=== PATIENT | male | born 1940 | race Caucasian/White ===

== ENCOUNTER → 2019-07-22 12:34 | Outpatient (CLI) | payer MEDICARE, SELFPAY ==
--- NOTE | 2019-07-22 12:35 | CA_ITS ---
APPROVED REPORT EXAM: Comprehensive 2D, Doppler, and color-flow Echocardiogram Obstetrics Specialist: Elvia Dent CRT Ht: 5 ft 10 in Wt: 172lbs BSA: 1.96 BP: 142/82 mmHg Indications: COPD, Hyperlipidemia, Hypertension/HDD, smoker, cad, RBBB, old mi 1992, CP 2D Dimensions LVOT 1.82 cm (M/F) 1.5-2.5 M-Mode Dimensions RVDd 1.60 cm (0.9-2.6) LVDd 4.08 cm (3.5-5.7) LVDs 2.63 cm (3.5-5.7) IVSd 1.35 cm (0.6-1.1) PWd 1.26 cm (0.6-1.1) EF (Teich) 65.50% FS 35.50% EDV (Teich) 73.40 mL ESV (Teich) 25.30 mL LV Diastology E/A Ratio 0.59 Aortic Valve LVOT Max 116.00 (70-110 cm/s) LVOT VTI 20.64 cm Mitral Valve MV A Velocity 87.00 (40-130 cm/s) Left Ventricle Left atrium is mildly enlarged, left ventricle is normal size, mild concentric left ventricular hypertrophy, visually estimated ejection fraction 50%, there is abnormal septal motion, there is no regional wall motion abnormality, grade 1 diastolic dysfunction seen without tissue Doppler evidence of raise left atrial pressure. Right Ventricle Right atrium and right ventricular qualitatively mildly enlarged with normal contractility. Aortic Valve Aortic valve leaflets are not well visualized, the Doppler is not suggestive of aortic stenosis or significant aortic insufficiency. Mitral Valve Mitral valve is grossly normal, there is mild mitral regurgitation. Tricuspid Valve Tricuspid valve grossly normal, there is mild tricuspid regurgitation, tricuspid regurgitation jet velocity is inadequate for calculation of the right ventricular systolic pressure. Pulmonic Valve Pulmonic valve is poorly visualized. Great Vessels Aortic root is normal size. Pericardium No significant pericardial effusion noted. Conclusion 1. Mild mitral alignment, normal left ventricular size, mild concentric left ventricular hypertrophy, visually estimated ejection fraction 50% with no regional wall motion abnormality, grade 1 diastolic dysfunction seen without tissue Doppler evidence of raise left atrial pressure. 2. Mildly enlarged right ventricle with normal contractility. 3. The aortic valve is not well visualized, however Doppler is not suggestive of aortic stenosis or aortic insufficiency. 4. Mild mitral and tricuspid regurgitation. 5. No significant pericardial effusion noted. Electronically signed by : Juwan Do, 07/23/2019 11:42:04
--- NOTE | 2019-07-22 12:35 | CA_ITS ---
APPROVED REPORT Systems Engineering Manager: Barby Do RVT Laterality: Bilateral Study Quality: Good Indications: bruit Risk Factors Hypertension: Hyperlipidemia Smoking Doppler Spectral Velocity Analysis ECA (R) 188.90/7.60 cm/s ECA (L) 149.40/7.20 cm/s dICA (R) 73.10/14.10 cm/s dICA (L) 63.60/19.40 cm/s Rodrigo (R) 69.60/20.00 cm/s Rodrigo (L) 74.50/17.00 cm/s pICA (R) 86.10/13.60 cm/s pICA (L) 112.70/22.40 cm/s dCCA (R) 75.00/9.20 cm/s dCCA (L) 56.70/6.20 cm/s pCCA (R) 84.20/13.30 cm/s pCCA (L) 96.60/9.60 cm/s Vert (R) 53.10/14.10 cm/s Vert (L) 36.80/5.60 cm/s ICA/CCA 1.15 ICA/CCA 1.99 Conclusion Study suggests 20-49% stenosis of the right internal cartoid artery. study suggests 20-49% stenosis (upper end of scale) of the left internal cartoid artery. Antegrade flow seen bilateral vertebral arteries. Cystic nodules seen right thyroid lobe. Electronically signed by : Nathan Rodgers MD 07/22/2019 16:36:06
== END ==
PROVIDERS: PCP Emergency Medicine; Visit Provider Emergency Medicine
DX: I10 Essential (primary) hypertension (principal); R07.89 Other chest pain; R09.89 Other specified symptoms and signs involving the circulatory and respiratory systems
CPT/HCPCS: 93306; 93880

== ENCOUNTER → 2019-07-23 11:27 | Outpatient (CLI) | payer MEDICARE, SELFPAY ==
[2019-07-23 13:01] LABS: Prostate Specific Ag Screen 3.9 ng/ml (0.0-4.0)
== END ==
PROVIDERS: Visit Provider Urology
DX: Z12.5 Encounter for screening for malignant neoplasm of prostate (principal)
CPT/HCPCS: 36415; G0103

== ENCOUNTER 2019-10-29 20:35 | Emergency (ER) | payer MEDICARE, SELFPAY ==
[2019-10-29 20:47] VITALS: BP 158/65; PULSE 78; RESP 16; TEMP 36.7; O2SAT 94; BMI 26.2
--- NOTE | 2019-10-29 20:48 | XR_ITS ---
PROCEDURE: XR FOOT LT MIN 3V CLINICAL INDICATION: PAIN Slipped on wet stairs. COMPARISON: No exams were available for comparison FINDINGS: No fracture or dislocation. No lytic or blastic change. There is normal mineralization. The joint spaces are well-preserved. No erosive changes evident. Mild degenerative arthrosis of the midfoot. Other findings:2nd to 5th hammertoes. There is increased web space between the 2nd and 3rd toe. Extensive small vessel atheromatous calcifications possibly sequela of diabetes mellitus. Possible minor soft tissue swelling laterally of the mid/forefoot. IMPRESSION: 1. No demonstrated acute fracture or dislocation. 2. Possible minor soft tissue swelling dorsally/medially of the mid/distal foot. Dictated by: Belgica Fletcher 10/30/2019 09:40 Electronically signed by Belgica Fletcher in [place] 10/30/2019 09:40
--- NOTE | 2019-10-29 20:52 | HMH.EDUTC ---
[facility] [place] Clinical Impression: Foot infection Foot pain Qualifiers: Laterality: left Qualified Code(s): M79.672 - Pain in left foot Disposition: Home, Self-Care Condition on Discharge: Good Instructions: DI for Wound Infection Additional Instructions: Make sure to clean wound area well between 4th and 5th toe *Take antibiotics as prescribed for infection Follow up with Dr Morgan for further evaluation and treatment of infection in foot Follow up with Family Doctor if no improvement or any worsening of symptoms Return if needed Straight to ER if any fever, chills or life threatening symptoms Prescriptions: clindamycin HCL [Clindamycin HCl 300mg Cap] 300 mg PO Q8 #30 cap Transmission Status: Pending to [id number] Referrals: PCP,Mali [Primary Care Provider] - As needed Hillary Morgan DPM [Staff Physician] - As needed Time of Disposition: 21:30 Medical Decision Making - Emeterio Inquiry Pt receiving controlled substance: No Emeterio was queried for this patient: No Vital Signs: 10/29/19 20:47 Temperature 98.0 F Temperature Source Oral Pulse Rate [Right Brachial] 78 Respiratory Rate 16 Blood Pressure [Right Arm] 158/65 H Blood Pressure Mean [Right Arm] 96 Blood Pressure Source [Right Arm] Automatic Cuff Blood Pressure Position [Right Arm] Sitting 02 Sat by Pulse Oximetry 94 L Oxygen Delivery Method Room Air Orders (Tests/Meds): ORDERS Category Date Time Status XR foot LT min 3V Stat Exams 10/29/19 20:48 Ordered - Radiology Data #1 Image(s): Foot/Toes Image Reviewed: Yes I reviewed the patient's radiology image w/the ED provider Preliminary Findings: No Fracture Seen Medical Decision Narrative: ulceration noted between 4th and 5th toe upon examination of foot with mild redness noted. Patient unsure how long it had been there, area cleaned well and bandage placed and patient placed in post op shoe for support and started on Clindamycin for infection and recommended follow up with Dr morgan for further evaluation and treatment [facility] [place] - General Stated complaint: Both feet swollen and pain Time Seen by Provider: 10/29/19 20:52 Mode of Arrival: Ambulatory Source of Information: Patient Limitations: No Limitations Description of Symptoms (Recalled from Triage Doc. by RN): PATIENT C/O LEFT FOOT PAIN AFTER FALLING AND INJURING IT HEENT Symptoms (Recalled from RN notes): No Resp Symptoms (Recalled from RN notes): No Skin Symptoms (Recalled from RN notes): No MS Symptoms (Recalled from RN notes): Yes Functional Status (Recalled from RN notes): WNL - History of Present Illness Provider Complaint: Patient states that he eat some Chicken and was taking it to the trash to throw it away and someone had laid a board down and he accidently kicked it with his left foot and made him trip and the board came up and hit him in the top of his left foot and now he is having pain on the side of his little toe across the top of his foot State that now he is having pain in his left foot - Related Data Home Medications Medication Instructions Recorded Confirmed atorvastatin 40 mg tablet 40 mg PO QHS 07/15/19 07/23/19 Previous Rx's Medication Instructions Recorded Famotidine [Pepcid 20mg Tablet] 20 mg PO BID #60 tab 06/22/19 budesonide-formoterol HFA 80 2 puff INHALATION BID #10.2 g 07/15/19 mcg-4.5 mcg/actuation aerosol inhaler lisinopril 40 mg tablet See Rx Instructions .ROUTE 09/07/19 .COMPLEX #180 tab clindamycin HCL [Clindamycin HCl 300 mg PO Q8 #30 cap 10/29/19 300mg Cap] Allergies Allergy/AdvReac Type Severity Reaction Status Date / Time acetaminophen AdvReac Mild Vomiting Verified 07/23/19 11:08 [From Tylenol-Codeine] codeine AdvReac Mild Vomiting Verified 07/23/19 11:08 [From Tylenol-Codeine] - Worker's Comp Is this a Worker's Comp case?: No H History - Hepatitis A Screen Drug use history?: No High risk sexual behaviors?:
[2019-10-29 21:49] VITALS: BP 158/65; PULSE 78; RESP 16; TEMP 36.7; O2SAT 94
== END 2019-10-29 21:50 | disposition home or self-care (01) ==
PROVIDERS: Emergency Provider Nurse Practitioner
DX: M79.672 Pain in left foot (principal); L08.9 Local infection of the skin and subcutaneous tissue, unspecified; Z88.6 Allergy status to analgesic agent; E78.5 Hyperlipidemia, unspecified; I10 Essential (primary) hypertension; J44.9 Chronic obstructive pulmonary disease, unspecified; Z79.899 Other long term (current) drug therapy
CPT/HCPCS: 73630; 99201

== ENCOUNTER → 2019-11-02 17:59 | Outpatient (CLI) | payer MEDICARE, SELFPAY | PROVIDERS: Visit Provider Podiatrist | DX: S91.105A Unspecified open wound of left lesser toe(s) without damage to nail, initial encounter | CPT/HCPCS: 87070; 87077; 87186; 87205 ==

== ENCOUNTER → 2019-11-03 13:32 | Outpatient (CLI) | payer MEDICARE, SELFPAY ==
--- NOTE | 2019-11-03 13:49 | XR_ITS ---
PROCEDURE: XR CHEST AP CLINICAL HISTORY: surgery clearance Smoker, heart disease COMPARISON: CT CT ANGIO CHEST from 06/22/2019 CR XR CHEST 2V from 06/22/2019 FINDINGS: The cardiomediastinal silhouette and pulmonary vascularity are within normal limits. Changes of COPD No acute bony abnormalities. IMPRESSION: COPD otherwise negative Dictated b Nathan Rodgers MD 11/03/2019 14:11 Nathan Rodgers MD in [place] 11/03/2019 14:11
[2019-11-03 14:10] LABS: Hemoglobin A1C 6.3 % (4.0-6.0)
--- NOTE | 2019-11-03 14:14 | ECG_ITS ---
APPROVED REPORT Exam: Resting ECG HR:69 bpm ECG Measurements Heart Rate 69 AXES FL 168 P 81 QRSd 112 QRS 92 QT 398 T 30 QTc 426 <Conclusion> Normal sinus rhythm Rightward axis Incomplete right bundle branch block Borderline ECG Electronically signed by : Zack Nelson, 11/04/2019 07:20:05
[2019-11-03 14:22] LABS: Basophils % 0.5 % (0.1-2.0); Eosinophils # 0.2 K/mm3 (0.0-0.4); Eosinophils % 4.1 % (0.1-12.0); Hematocrit 38.1 % (42.0-52.0); Hemoglobin 13.1 g/dL (14.1-18.0); Lymphocytes # 1.4 K/mm3 (0.7-4.5); Lymphocytes % 23.8 % (10-50); Mean Corpuscular HGB Conc 34.3 g/dL (31.8-35.4); Mean Corpuscular Volume 96.2 fl (80-94); Mean Platelet Volume 7.5 fl (7.4-10.4); Monocytes # 0.3 K/mm3 (0.1-1.0); Monocytes % 5.3 % (1.7-9.3); Neutrophils # 3.8 K/mm3 (1.8-7.8); Neutrophils % 66.3 % (37.0-80.0); Platelet Count 237 K/mm3 (142-424); Red Blood Count 3.96 M/mm3 (4.60-6.20); Red Cell Distribution Width 13.7 % (11.5-17.5); White Blood Count 5.7 K/mm3 (4.8-10.8)
[2019-11-03 14:30] LABS: Chloride 101 mmol/L (98-107); Sodium 137 mmol/L (136-145)
[2019-11-03 14:31] LABS: Potassium 4.7 mmoL/L (3.5-5.1)
[2019-11-03 14:33] LABS: Alanine Aminotransferase 12 U/L (12-78); Alkaline Phosphatase 67 U/L (38-126); Anion Gap 14.7 mEq/L (5-15); Aspartate Amino Transferase 25 U/L (17-59); Bilirubin,Total 0.5 mg/dl (0.2-1.3); Blood Urea Nitrogen 14 mg/dl (9-20); Carbon Dioxide 26 mmol/L (22.0-30.0); Estimated Glomerular Filt Rate 49 ml/min (>60); GFR (African American) 59 ML/MIN (>60)
[2019-11-03 14:34] LABS: Albumin Level 3.8 g/dl (3.5-5.0); Albumin/Globulin Ratio 1.3 (1.1-1.8); Calcium 9.3 mg/dl (8.4-10.2); Globulin 2.9 g/dL (1.3-3.2); Glucose 141 mg/dl (74-100); Total Protein,Serum 6.7 g/dl (6.3-8.2)
[2019-11-03 14:39] LABS: C-Reactive Protein 8.7 mg/L (0-4)
[2019-11-03 16:47] LABS: Erythrocyte Sedimentation Rate 75 mm/hr (0-20)
== END ==
PROVIDERS: PCP Emergency Medicine; Visit Provider Podiatrist
DX: L08.9 Local infection of the skin and subcutaneous tissue, unspecified (principal); S90.415A Abrasion, left lesser toe(s), initial encounter; E11.9 Type 2 diabetes mellitus without complications; M79.672 Pain in left foot; M86.172 Other acute osteomyelitis, left ankle and foot; S99.922A Unspecified injury of left foot, initial encounter; Z79.84 Long term (current) use of oral hypoglycemic drugs
CPT/HCPCS: 36415; 71045; 80053; 83036; 85025; 85651; 86140; 93005

== ENCOUNTER 2019-11-04 07:51 | Day surgery (SDC) | payer MEDICARE, SELFPAY ==
[2019-11-04] VITALS (13 sets, daily range): BP systolic 102–141; BP diastolic 51–83; PULSE 59–87; RESP 16–18; TEMP 36.1–43; O2SAT 96–99; BMI 25.5
--- NOTE | 2019-11-04 07:20 | US_ITS ---
APPROVED REPORT Exam Type: Lower Extremity Segmental Pressures Bulk Sugar Handler: Chaya Ramachandran RDCS Indications Non-healing Ulcer: Rest Pain: Current Smoker History of Smoking Risk Factors Hypertension Diabetes Pressures/Indices Right Indices Left Indices Brachial 98.00 mmHg Brachial 106.00 mmHg Low Thigh 62.00 mmHg 0.58 Low Thigh 48.00 mmHg 0.45 Calf 91.00 mmHg 0.86 Calf 42.00 mmHg 0.40 Ankle(PT) 52.00 mmHg 0.49 Ankle(PT) 41.00 mmHg 0.39 Ankle(DP) 112.00 mmHg 1.06 Ankle(DP) 91.00 mmHg 0.86 Digit 31.00 mmHg 0.29 Digit 21.00 mmHg 0.20 Findings R HERBERTH 1.06 L HERBERTH 0.86 R TBI .3 L TBI .2 DIMINISHED WAVEFORM AND DIMINISHED PULSES ESPECIALLY ON LEFT LEG MILD LEFT ARTERIAL DISEASE SMALL VESSEL DISEASE REPORTED TO DR. NINO Conclusion R HERBERTH 1.06 L HERBERTH 0.86 R TBI .3 L TBI .2 DIMINISHED WAVEFORM AND DIMINISHED PULSES ESPECIALLY ON LEFT LEG MILD LEFT ARTERIAL DISEASE SMALL VESSEL DISEASE REPORTED TO DR. NINO Electronically signed by : Nathan Rodgers MD 11/04/2019 16:19:41
[2019-11-04 07:50] LABS: Coronavirus 19 IgG Antibody Negative (Negative); Coronavirus 19 IgM Antibody Negative (Negative)
[2019-11-04 09:14] LABS: POC Glucose,Bedside 108 (70-110)
--- NOTE | 2019-11-04 10:00 | P.PN_ITS ---
[facility] Anesthesia Checklist - Patient Identification Patient Identification: Arm Band - Structural Data Admitted From: Home Planned Operative Procedure/s: Left 5th Toe Amputation, I&D Consent for Planned Operative Procedure(s) Verified: Yes Verified Documents: Surgical Consent, History and Physical - NPO Status Verified Time NPO: 00:00 - Additional verifications Anesthesia Reactions: No Hx Blood Transfusions: No Blood Transfusion Reaction: No - Airway Assessment C-Spine Mobility Assessed: Yes (mp2) TMJ Mobility Assessed: Yes Dentition: Good Dentition - Neurological Assessment Level of Consciousness: Awake, Alert - Anesthesia Plan Anesthesia Risk discussed: Yes Anesthesia Plan: Verified ASA Class: III Anesthesia Type: General [facility] History I have reviewed the patient's past medical history: Yes Medical History: Reports:: Chronic Obstructive Pulmonary Disease (COPD), Hyperlipidemia, Hypertension Denies:: Cancer, Diabetes Mellitus Type 1, Diabetes Mellitus Type 2, Internal Pacemaker, MRSA, Seizures *Have you ever received a pneumonia vaccine?: Yes *Have you received a flu vaccine this season?: Yes Other Medical History: Denies: Blood Transfusion Reaction Anesthesia experience/problems:: nac Other Surgeries: Yes: Cardiac Catheterization, Cardiac Surgery, Colonoscopy, Other. No: Pacemaker Amputation: Yes Fractures: No - *Social History Last grade of school completed: 9th or 10th Smoking Status: Current every day smoker Tobacco Type: cigarettes # Packs/Day (cigarettes): 2 Alcohol Intake: never Substance Use Type: denies use *Occupational Status:: retired Housing: house Household Members: family *Travel in the last 8 weeks: None Family Hx:: Coronary Artery Disease, Heart Attack, Stroke, Hyperlipidemia, Alcoholism
--- NOTE | 2019-11-04 10:15 | XR_ITS ---
PROCEDURE: XR FOOT LT MIN 3V CLINICAL INDICATION: Post op amp Follow-up amputation COMPARISON: CR XR FOOT LT MIN 3V from 10/29/2019 FINDINGS: There has been amputation at the 5th metatarsophalangeal joint. Bandage artifact is present. This does somewhat obscure overlying bony detail. There is good alignment of the remaining bony structures. There is an old fracture of the 5th metatarsal IMPRESSION: Good alignment status post amputation 5th metatarsophalangeal joint. Dictated b Nathan Rodgers MD 11/04/2019 13:57 Nathan Rodgers MD in [place] 11/04/2019 13:57
--- NOTE | 2019-11-04 10:15 | P.PN_ITS ---
[facility] Anesthesia Record Part I Intake, IV Amount: 700 Estimated blood loss (mL): 5 Urine output (mL): 0 Blood Pressure: 102/55 SaO2: 99 Pulse Rate: 78 Respiratory Rate: 16 Temperature: 97.5 F Patient is:: Drowsy, Stable Stable to PACU at:: 10:10
--- NOTE | 2019-11-04 10:22 | HMH.OPNOTE ---
Date of procedure: 11/04/19 Pre-op Diagnosis:: 1. Left 5th toe ulcer 2. 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 Left proximal phalanx dislocation 4. Left foot cellulitis 5. Newly diagnosed DM 6. Newly diagnosed PAD Post-op Diagnosis:: Same Procedure performed:: 1. Left 5th toe amputation 2. Left foot irrigation and debridement 3. Left bone biospy Surgeon:: Hillary Morgan DPM FREIGHT ROUTER:: Varun Walker Anesthesia: GETA, local (30cc 0.5% marcaine plain) Estimated blood loss (mL): 5 Clinical Note:: Mr. Bliss is an 79-year-old male who is a new patient to me this week. He reports sore to the left toe. His niece Chaya is his caregiver and he lives with her. She states that the sore has been there for several weeks. Patient last week tripped and hit a board and the wound progressively got worse and infected since then. Radiographs of the left foot taken 10/29/19. Report noted. IMPRESSION: 1. No demonstrated acute fracture or dislocation. 2. Possible minor soft tissue swelling dorsally/medially of the mid/distal foot. Images were reviewed and discussed with the patient. Likely underlying cellulitis and infection made worse secondary to the trauma. Patient is new patient on 11/02/19, In office cultures of left 5th toe: wound culture GNR, bone culture, both pathology pending. We discussed conservative versus surgical treatment options. Conservative treatment options include local wound care, oral and IV antibiotics, change in shoe wear, taping/padding, and off-loading. We discussed surgical intervention for amputation of the left 5th toe. He was given Clinda, but someone took the prescriptions . He has not seen PCP, Dr. Rodas in almost 6 months and denies seeing cardiology. He was supposed to move back to [place] but did not. Discussed cellulitis vs osteomyelitis. He has exposed bone with drainage, assumed bone infection. He understands treatment is debridement of infected tissue and bone. Patient understands that there is a chance that the toes can migrate to fill the gap or the foot may change shape after surgery. Patient also understands that they could have wound healing complications including delayed healing and infection. We discussed that if the wound does not heal, it is possible that they may need a more proximal amputation and could result in further loss of digits, loss of partial foot or loss of leg. We discussed the risks and benefits in great detail. Other surgical risks include: prolonged pain and swelling, further infection requiring oral or IV antibiotics, delay in healing of soft tissue or bone, nerve or blood vessel damage, CRPS/RSD, DVT, anesthesia complications, and even . All questions answered. Patient verbalized understanding. Consent obtained. e-Rx Clinda 300mg TID, Zofran 4mg, and Sanborn 7.5/325. Medical clearance per Dr. Rodas/Nancy Espinoza and cardiology. Pre-op labs, 11/03/19: ESR 75, CRP 8.7, Ha1c 6.3%, WBC 5.7, creatinine 1.4, gfr 49, glcuose 141, EKG, CXR. DOS: ABIs, COVID negative. Bilateral arterial ultrasound: HERBERTH 1.06 (PT 0.49, DP 1.06), L 0.86 (PT 0.39, DP 0.86). TBI R 0.29, L 0.20 *DOS: Left message for Nancy Espinoza/PCP regarding the elevated glucose levels of 141 and the hemoglobin A1c of 6.3. I explained to the patient he is newly diagnosed diabetic. I did call and speak with [facility] cardiology regarding the ABIs that were taken today. I explained his exposed bone cellulitis and infection to the toe. We will proceed with amputation surgery. She will review the chart and ultrasound results. The patient is scheduled for follow-up with cardiology in the next few weeks. If he needs a runoff and needs to come in sooner cardiology office will contact him. I also discussed the vascular studies with the patient and his niece preoperatively. I explained the increased risk of gangrene, delay in healing of the soft tissue, increased risk of prolonged infection. They verbalized understanding and agreed to proceed. Operative findings:: Left fifth
[2019-11-04 10:36] LABS: POC Glucose,Bedside 113 (70-110)
--- NOTE | 2019-11-04 14:29 | P.PN_ITS ---
[facility] Anesthesia Record Part II Discharge Time: 10:40 Destination: Surgical Day Care (OP Surgery) PACU nurse assessment reviewed?: Yes Patient Condition:: Good Anesthesia Complications:: None Swallowing reflex intact?: Yes Cyanosis?: No Blood Pressure: 107/55 Pulse Rate: 70 Temperature: 97 F Mental Status: Alert & Oriented Pain level:: 0 Nausea and/or vomitting:: None Intake, IV Amount: 0
== END 2019-11-04 12:11 | disposition home or self-care (01) ==
LOC: OR 07:54
PROVIDERS: PCP Emergency Medicine; Visit Provider Podiatrist
DX: M86.172 Other acute osteomyelitis, left ankle and foot (principal); L97.524 Non-pressure chronic ulcer of other part of left foot with necrosis of bone; I25.10 Atherosclerotic heart disease of native coronary artery without angina pectoris; Z72.0 Tobacco use; J44.9 Chronic obstructive pulmonary disease, unspecified; E11.9 Type 2 diabetes mellitus without complications; I10 Essential (primary) hypertension; I99.8 Other disorder of circulatory system
CPT/HCPCS: 28160; 73630; 82962; 86328; 87070; 87075; 87077; 87186; 87205; 88305; 88311; 93923; 96374; J2405; J3370

== ENCOUNTER → 2019-11-09 16:53 | Outpatient (CLI) | payer MEDICARE, SELFPAY | PROVIDERS: Visit Provider Podiatrist | DX: Z98.890 Other specified postprocedural states (principal); M86.172 Other acute osteomyelitis, left ankle and foot | CPT/HCPCS: 87070; 87077; 87186; 87205 ==

== ENCOUNTER → 2019-11-16 09:01 | Outpatient (CLI) | payer MEDICARE, SELFPAY ==
--- NOTE | 2019-11-16 09:06 | XR_ITS ---
PROCEDURE: XR FOOT WT BEARING LT 3V CLINICAL INDICATION: foot pain COMPARISON: CR XR FOOT LT MIN 3V from 10/29/2019 CR XR FOOT LT MIN 3V from 11/04/2019 FINDINGS: Status post amputation at the 5th metatarsophalangeal junction. There is an old 5th metatarsal fracture. No acute bony erosive process evident. Hammertoe deformity involves the 3rd and 4th toes. There is vascular calcification noted. Other findings:None. IMPRESSION: No change status post amputation at the 5th metatarsophalangeal junction Dictated by: Nathan Rodgers MD 11/16/2019 10:29 Nathan Rodgers MD in [place] 11/16/2019 10:29
== END ==
PROVIDERS: Visit Provider Podiatrist
DX: L08.9 Local infection of the skin and subcutaneous tissue, unspecified (principal); M86.172 Other acute osteomyelitis, left ankle and foot
CPT/HCPCS: 73630

== ENCOUNTER → 2019-11-17 06:45 | Outpatient (CLI) | payer MEDICARE, SELFPAY ==
--- NOTE | 2019-11-17 06:50 | NM_ITS ---
APPROVED REPORT Exam: Nuclear Stress Test Indication: SOB, HTN, CAD, DM, High cholesterol, Tobacco use, Family history Patient Location: Outpatient Stress Tech: Megan Bey [place] Tech:Geni Beckman, ARRT, RT (R)(N) Ht: 5 ft 9 in Wt: 178 lbs HR: 79 bpm BP: 99/46 mmHg BSA: 1.97 m2 BMI: 26.2 History: SOB, HTN, CAD, DM, High cholesterol, Tobacco use, Family history Procedure: Patient received a 0.4 mg of intravenous Lexiscan, resting heart rate 79 bpm, resting blood pressure 99/46 mmHg, with Lexiscan maximum heart rate achived was 96 bpm which is Less than 85 % of the maximum predicted heart rate and blood pressure was 99/48 mmHg. With Lexiscan, patient denied any complaint of chest pain. Electrocardiogram Resting electrocardiogram shows sinus rhythm right ventricular conduction delay, with Lexiscan there is less than 1.[address] segment depression noted from the baseline EKG. The EKG portion of the Lexiscan Myoview is nondiagnostic. Cardiac Stress and Resting SPECT Images: Cardiac Stress and Resting SPECT images were obtained using technetium 99m Myoview 30.4 mCi stress and 10.37 mCi at rest. Gated SPECT for analysis of segmental wall motion and calculation of the ejection fraction also done. Cardiac stress and resting SPECT images show uniform myocardial activity without segmental perfusion abnormality, computer derived ejection fraction is 63% with no regional wall motion abnormality, right ventricle is normal size and contractility. Conclusion: 1. The EKG portion of the Lexiscan Myoview is nondiagnostic. 2. No scintigraphic evidence of reversible ischemia seen, computer derived ejection fraction is 63% with no regional wall motion abnormality, right ventricle is normal size and contractility. 3. Normal Lexiscan Myoview study. Electronically signed by : Juwan Do, 11/17/2019 21:40:30
--- NOTE | 2019-11-17 06:50 | CA_ITS ---
APPROVED REPORT Exam: Pharmacologic Technologist: Megan Bey Ht: 5 ft 9 in Wt: 178 lbs BSA: 1.97 m2 HR: 79 bpm BP: 99/46 mmHg Indications: CAD Medical History Medications: Lisinopril,,,,, Metformin,,,,, SyMBICORT,,,,, Levofloxacin,,,,, DOxycycline,,,,, ClINDAMYCIN,,,,, Hydrocodone-Acetaminophen,,,,, Stress Test Details Test: LEXISCAN HR Resting HR: 83 bpm Max Heart Rate (APMHR): 140 bpm Max HR Achieved: 104 bpm Target HR (85% APMHR): 119 bpm % of APMHR: 74 Recovery HR: 93 bpm BP Resting BP: 99.0/46.0 mmHg Max BP: 129.0/48.0 mmHg Recovery BP: 114.0/47.0 mmHg ECG Clinical Exercise duration: 00:25 min Highest Stage Achieved: Exercise capacity: 1.0 METs Stress ECG Conclusion Resting EKG: Normal sinus rhythm, Right bundle branch block, PAC Symptoms: Mild malaise. No chest pain. Arrhythmias/Ectopy: Occasional PVC ST-T Changes: No significant changes. Conclusion: Unremarkable Lexiscan stress. Myoview images reported separately. Test Summary REST . . . . . . . Resting REST 04:30 . . 83 . 99/ 46 . . Stage 1 00:25 . . 80 . . . Stop exercise at 00:25 RECOVERY 01:00 . . 97 . . . . RECOVERY 02:00 . . 93 . 99/ 48 . . RECOVERY 03:00 . . 95 . 99/ 51 . . RECOVERY 04:00 . . 93 . 115/ 47 . . RECOVERY 05:00 . . 94 . 129/ 48 . . RECOVERY 06:00 . . 92 . 129/ 48 . . RECOVERY 06:47 . . 94 . 114/ 47 . . Electronically signed by : Juwan Do, 11/17/2019 21:38:27
--- NOTE | 2019-11-17 09:01 | HMH.ITSHM ---
Current Home Medications as stated by this patient Sebas Cortés or sales representative girls' apparel. []METFORMIN LISINOPRIL LEVOFLOXACIN HYDROCODONE DOXYCYCLINE CLINDAMYCIN BUDESONIDE
== END ==
PROVIDERS: PCP Emergency Medicine; Visit Provider Physician Assistant
DX: E78.2 Mixed hyperlipidemia (principal); I10 Essential (primary) hypertension; I25.10 Atherosclerotic heart disease of native coronary artery without angina pectoris; I25.2 Old myocardial infarction; I73.9 Peripheral vascular disease, unspecified; J44.9 Chronic obstructive pulmonary disease, unspecified; Z72.0 Tobacco use; Z95.5 Presence of coronary angioplasty implant and graft
CPT/HCPCS: 78452; 93017; A9502; J2785

== ENCOUNTER 2019-11-18 12:59 | Observation (INO) | payer MEDICARE, SELFPAY ==
[2019-11-18] VITALS (57 sets, daily range): BP systolic 62–182; BP diastolic 31–86; PULSE 54–97; RESP 16–20; TEMP 36.5–36.9; O2SAT 93–100; BMI 25.4; BMI 24.0
--- NOTE | 2019-11-18 | CT_ITS ---
PROCEDURE: CT ABDOMEN PELVIS WO CON CLINICAL INDICATION: POSS SUDO POST CATH Hypotension status post renal artery stent and bilateral iliac artery stent. COMPARISON: CT CT ABDOMEN PELVIS W CON from 06/22/2019 XA CL BOLUS ZAHIDA AORTAGRAM BI from 11/18/2019 TECHNIQUE: Axial images obtained with sagittal and coronal reformats. All CT scans at the facility use one or more dose reduction, viz: automated exposure control, ma/kV adjustment per patient size (including targeted exams where dose is matched to indication, i.e. head), or iterative reconstruction technique. FINDINGS: LOWER THORAX: Coronary artery calcifications are present. ABDOMEN & PELVIS: Study was performed without contrast however the patient is status post recent right renal artery and bilateral iliac artery stenting with contrast given on those procedures. The kidneys are therefore excreting contrast. There are multiple benign-appearing bilateral renal cyst. There is a pelvic kidney on the left. There is no evidence of retroperitoneal hemorrhage. No intestinal obstruction or free air is evident. There is a small umbilical hernia which contains fat. No evidence of diverticulitis or appendicitis. No intestinal obstruction or free air. Lobular soft tissue density noted in the left groin at 2.8 cm transverse and 0.8 cm thick which may be due to small lymph nodes or small hematoma.. Minimal infiltration of the fat in the right groin noted consistent with small amount of blood. No large hematomas are evident. There is some minimal infiltration of the fat in the left groin as well. The prostate is enlarged at 5 cm. There is a right renal artery stent and bilateral iliac artery stents. No acute bony findings. IMPRESSION: 1. No evidence of acute retroperitoneal hemorrhage. 2. Bilateral renal cysts with the left pelvic kidney. 3. Right renal artery and bilateral iliac artery stents are present 4. Enlarged prostate. 5. There is some infiltration of the the inguinal fat on both sides suggesting small amount of blood with possible small hematoma in the left groin at 2.8 x 0.8 cm Dictated by: Nathan Rodgers MD 11/18/2019 14:38 Nathan Rodgers MD in [place] 11/18/2019 14:38
[2019-11-18 09:24] LABS: Chloride 100 mmol/L (98-107); Potassium 4.7 mmoL/L (3.5-5.1); Sodium 136 mmol/L (136-145)
[2019-11-18 09:27] LABS: Anion Gap 13.7 mEq/L (5-15); Blood Urea Nitrogen 18 mg/dl (9-20); Calcium 9.7 mg/dl (8.4-10.2); Carbon Dioxide 27 mmol/L (22.0-30.0); Creatinine Clearance Estimated 42 mL/min (50-200); Estimated Glomerular Filt Rate 42 ml/min (>60); GFR (African American) 51 ML/MIN (>60); Glucose 93 mg/dl (74-100)
[2019-11-18 09:28] LABS: Basophils % 0.4 % (0.1-2.0); Eosinophils # 0.3 K/mm3 (0.0-0.4); Eosinophils % 3.9 % (0.1-12.0); Hematocrit 37.5 % (42.0-52.0); Hemoglobin 12.7 g/dL (14.1-18.0); Lymphocytes # 1.7 K/mm3 (0.7-4.5); Mean Corpuscular HGB Conc 33.9 g/dL (31.8-35.4); Mean Corpuscular Hemoglobin 32.5 pg (27.0-31.2); Mean Corpuscular Volume 95.8 fl (80-94); Mean Platelet Volume 7.1 fl (7.4-10.4); Monocytes # 0.4 K/mm3 (0.1-1.0); Monocytes % 4.5 % (1.7-9.3); Neutrophils # 5.4 K/mm3 (1.8-7.8); Neutrophils % 69.2 % (37.0-80.0); Platelet Count 322 K/mm3 (142-424); Red Blood Count 3.91 M/mm3 (4.60-6.20); Red Cell Distribution Width 13.6 % (11.5-17.5); White Blood Count 7.8 K/mm3 (4.8-10.8)
[2019-11-18 09:53] LABS: Coronavirus 19 IgG Antibody Negative (Negative); Coronavirus 19 IgM Antibody Negative (Negative)
[2019-11-18 14:12] LABS: CATHL Activated Clotting Time 245 SEC (74-125)
[2019-11-18 14:48] LABS: CATHL Activated Clotting Time 155 SEC (74-125)
[2019-11-18 14:49] LABS: CATHL Activated Clotting Time 277 SEC (74-125)
[2019-11-18 16:53] LABS: POC Glucose,Bedside 169 (70-110)
--- NOTE | 2019-11-18 17:28 | PC.NURSE ---
SPOKE WITH ISAURO BLANCO, TO INFORM HER THAT PATIENT WOULD BE GOING TO SURGERY AT 0700 IN AM PER SUMMER, VAPOR COATER. BELLA STATED DR. NINO HAD JUST ROUNDED AND STATED SHE WAS GOING TO PUT ORDERS IN.
--- NOTE | 2019-11-18 17:47 | HMH.ORTHOCON ---
*Admission Date: 11/18/19 *Reason for consult:: Left toe gangrene *History of present illness: Mr. Cortés is an 79-year-old male well-known to the podiatry service. He was last seen in the podiatry clinic 11/16/2019 and was scheduled for outpatient surgery next week 11/24/2009 for left foot wound debridement. 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 Patient was admitted today via the cardiology team after successful stent procedure. After discussion with Dr. Mares will plan for debridement of gangrenous wound tomorrow. Patient will maintain all anticoagulant/blood thinners per cardiology orders. Patient will also need evaluation via case management for home health care vs SNF. [facility] History I have reviewed the patient's past medical history: Yes Medical History: Reports:: Chronic Obstructive Pulmonary Disease (COPD), Diabetes Mellitus Type 1, Hyperlipidemia, Hypertension, Peripheral Artery Disease, Peripheral Vascular Disease Denies:: Cancer, Diabetes Mellitus Type 2, Internal Pacemaker, MRSA, Seizures *Have you ever received a pneumonia vaccine?: Yes *Have you received a flu vaccine this season?: Yes Other Medical History: Denies: Blood Transfusion Reaction Other Surgeries: Yes: Cardiac Catheterization, Cardiac Surgery, Colonoscopy, Other. No: Pacemaker Amputation: Yes Fractures: No - *Social History Last grade of school completed: Some college Smoking Status: Former smoker Tobacco Type: cigarettes # Packs/Day (cigarettes): 2 Alcohol Intake: never Substance Use Type: marijuana *Occupational Status:: retired Housing: house Household Members: family *Travel in the last 8 weeks: None Family Hx:: Unable to obtain Review of Systems - Review of Systems Review of systems:: pertinent systems reviewed and negative unless documented below - Constitutional Denies chills - Eyes Denies blind spots - ENT Denies abnormal hearing - *Cardiovascular Denies chest pain, Denies shortness of breath - *Respiratory Denies cough - *Gastrointestinal Denies abdominal pain - *Genitourinary Denies difficulty urinating - *Musculoskeletal Reports joint swelling - Integumentary/Breasts Reports hair loss, Reports nail changes, Reports non-healing lesions, Reports wounds (Left 5th toe amp site) - *Neurologic Denies behavioral changes - Psychiatric Denies abnormal sleep pattern - Endocrine Reports cold intolerance - Hematologic/Lymphatic Reports easy bruising - Allergic/Immunologic Reports GI upset with certain foods Meds Home Medications Medication Instructions Recorded Confirmed Type Budesonide/Formoterol Fumarate 2 puff INHALATION BID 11/02/19 11/18/19 History [Symbicort 80-4.5 Mcg Inhaler] hydrocodone 7.5 mg-acetaminophen 1 tab PO Q4-6H PRN #30 tab 11/02/19 11/18/19 Rx 325 mg tablet lisinopril 40 mg tablet 40 mg PO BID #60 tab 11/03/19 11/18/19 Rx Aspirin [Aspirin 81mg chewable 81 mg PO DAILY 11/18/19 11/18/19 History tab] Atorvastatin Calcium [Lipitor 40mg 40 mg PO HS 11/18/19 11/18/19 History Tablet] Doxycycline Hyclate [Vibra-Tab 100 mg PO BID 11/18/19 11/18/19 History 100mg tablet] Metformin HCl [Glucophage] 500 mg PO BID 11/18/19 11/18/19 History Ticagrelor [Brilinta 90mg 90 mg PO BID 11/18/19 11/18/19 History Tablet] Allergies Allergy/AdvReac Type Severity Reaction Status Date / Time No Known Allergies Allergy Verified 11/16/19 08:11 Exam Vital signs and Labs for Last 24 Hours: Temp Pulse Resp BP Pulse Ox 98.3 F 91 H 16 138/66 97 11/18/19 09:07 11/18/19 14:55 11/18/19 14:55 11/18/19 14:55 11/18/19 14:55 Laboratory Results - last 24 hr 11/18/19 09:05: WBC 7.8, RBC 3.91 L, Hgb 12.7 L, Hct 37.5 L, MCV 95.8 H, MCH 32.5 H, MCHC 33.9, RDW 13.6, Plt Count 322, MPV 7.1 L, Neut % (Auto) 69.2, Lymph % (Auto) 22.0, [place] % (Auto) 4.5, Eos % (Auto) 3.9, Baso % (Auto) 0
--- NOTE | 2019-11-18 19:56 | PC.NURSE ---
PATIENT ARRIVED ON FLOOR VIA STRETCHER. PATIENT REMAINED SUPINE UNTIL 1914. THIS RN ELEVATED HOB TO 30 DEGREES. WALT UNDERWOOD PHONED THIS RN AND ASKED TO PLACE AN ORDER OF DAPTOMYCIN 1G IV DAILY. THIS RN PUT ORDER INTO [facility]. THIS RN RECEIVED A PHONE CALL FROM [facility], STATING THAT THE DOSE IS TOO HIGH AND SUGGEST THAT THIS RN PHONE [facility] IN HOUSE PHARMACIST. THIS RN PAGED PHARMACY. JOSE PHONED THIS RN BACK, PERFORMED CALCULATIONS AND INSTRUCTED THIS RN TO PLACE AN ORDER FOR 500MH IV DAPTOMYCIN DAILY. THIS RN INFORMED WALT UNDERWOOD OF CHANGES. PER WALT UNDERWOOD THAT IS OKAY. NO OTHER NEEDS AT THIS TIME.
[2019-11-18 21:01] LABS: POC Glucose,Bedside 159 (70-110)
--- NOTE | 2019-11-18 23:44 | PC.NURSE ---
He is A&Ox4. He denies pain. He will be NPO at bednight for surgery in the morning. DSGs are C/D/I from his cath and stent placement today on both his right and left groin. He is sitting up in bed watching television. He denies SOA and weakness although he requested a walker to ambulate to the bathroom when needed. He has been voiding per urinal. Urine is yellow, clear. He continues on RA. Pictures of left foot are placed on the chart. Kylie for home is locked in the [employer] drawer. He received a bed bath at the beginning of the shift but do to his poor hygiene he continues to have dirt caked underneath his fingernails. He is cooperative with care.
[2019-11-19] VITALS (25 sets, daily range): BP systolic 105–161; BP diastolic 47–100; PULSE 68–107; RESP 12–20; TEMP 36.4–43; O2SAT 91–100; BMI 23.3
[2019-11-19 05:30] LABS: POC Glucose,Bedside 112 (70-110)
[2019-11-19 06:15] LABS: Basophils % 0.2 % (0.1-2.0); Eosinophils # 0.3 K/mm3 (0.0-0.4); Eosinophils % 3.1 % (0.1-12.0); Lymphocytes # 1.6 K/mm3 (0.7-4.5); Lymphocytes % 15.3 % (10-50); Mean Corpuscular HGB Conc 32.7 g/dL (31.8-35.4); Mean Corpuscular Hemoglobin 32.7 pg (27.0-31.2); Mean Platelet Volume 7.8 fl (7.4-10.4); Monocytes # 0.6 K/mm3 (0.1-1.0); Monocytes % 5.9 % (1.7-9.3); Neutrophils # 7.7 K/mm3 (1.8-7.8); Neutrophils % 75.5 % (37.0-80.0); Platelet Count 302 K/mm3 (142-424); Red Cell Distribution Width 13.4 % (11.5-17.5); White Blood Count 10.1 K/mm3 (4.8-10.8)
[2019-11-19 06:23] LABS: Potassium 5.2 mmoL/L (3.5-5.1)
[2019-11-19 06:24] LABS: Chloride 105 mmol/L (98-107); Sodium 138 mmol/L (136-145)
[2019-11-19 06:26] LABS: Anion Gap 11.2 mEq/L (5-15); Blood Urea Nitrogen 16 mg/dl (9-20); Calcium 9.2 mg/dl (8.4-10.2); Carbon Dioxide 27 mmol/L (22.0-30.0); Creatinine Clearance Estimated 46 mL/min (50-200); Estimated Glomerular Filt Rate 53 ml/min (>60); GFR (African American) 64 ML/MIN (>60); Glucose 122 mg/dl (74-100)
[2019-11-19 06:30] LABS: Hemoglobin 11.2 g/dL (14.1-18.0)
--- NOTE | 2019-11-19 07:23 | HMH.PHAVTE ---
[facility] Pharmacy VTE Monitoring - Patient Demographics Admission date: 11/18/19 Report Date: 11/19/19 Time: 07:23 Allergies/Adverse Reactions: Patient Allergies No Known Allergies Allergy (Verified 11/16/19 08:11) Height: 1.75 m Weight: 71.35 kg Patient Problems: Current Active Problems PAD (peripheral artery disease) (Acute) Gangrene of left foot (Acute) - VTE Risk Labs: VTE Related Lab Results Hgb 11.2 g/dL (14.1-18.0) L D 11/19/19 06:05 Hct 35.0 % (42.0-52.0) L 11/19/19 06:05 Plt Count 302 K/mm3 (142-424) 11/19/19 06:05 BUN 16 mg/dl (9-20) 11/19/19 06:05 Creatinine 1.30 mg/dl (0.66-1.25) H 11/19/19 06:05 Estimated Creat Clear 46 mL/min (50-200) 11/19/19 06:05 Was VTE Risk Assessment Performed: Yes VTE Score: 8 VTE Risk Level: Moderate Risk Clinical Trial Participant: No - Prophylaxis VTE Prophylaxis Ordered?: Yes Types of VTE Prophylaxis: TEDS Knee High
--- NOTE | 2019-11-19 07:32 | HMH.ANESCL ---
[facility] Anesthesia Checklist - Structural Data Admitted From: Inpatient Planned Operative Procedure/s: i/d l foot Consent for Planned Operative Procedure(s) Verified: Yes - Additional verifications Anesthesia Reactions: No Hx Blood Transfusions: No Blood Transfusion Reaction: No - Airway Assessment C-Spine Mobility Assessed: Yes TMJ Mobility Assessed: Yes Dentition: Edentulous - Neurological Assessment Level of Consciousness: Awake, Alert, Appropriate - Anesthesia Plan Anesthesia Risk discussed: Yes Anesthesia Plan: Verified ASA Class: III Anesthesia Type: General [facility] History I have reviewed the patient's past medical history: Yes Medical History: Reports:: Chronic Obstructive Pulmonary Disease (COPD), Diabetes Mellitus Type 1, Hyperlipidemia, Hypertension, Peripheral Artery Disease, Peripheral Vascular Disease Denies:: Cancer, Diabetes Mellitus Type 2, Internal Pacemaker, MRSA, Seizures *Have you ever received a pneumonia vaccine?: Yes *Have you received a flu vaccine this season?: Yes Other Medical History: Denies: Blood Transfusion Reaction Anesthesia experience/problems:: none Other Surgeries: Yes: Cardiac Catheterization, Cardiac Surgery, Colonoscopy, Other. No: Pacemaker Amputation: Yes Fractures: No - *Social History Last grade of school completed: Some college Smoking Status: Former smoker Tobacco Type: cigarettes # Packs/Day (cigarettes): 2 Alcohol Intake: never Substance Use Type: marijuana *Occupational Status:: retired Housing: house Household Members: family *Travel in the last 8 weeks: None Family Hx:: Unable to obtain
--- NOTE | 2019-11-19 07:54 | XR_ITS ---
PROCEDURE: XR FOOT LT MIN 3V CLINICAL INDICATION: s/p surgery Follow-up amputation COMPARISON: CR XR FOOT LT MIN 3V from 10/29/2019 CR XR FOOT LT MIN 3V from 11/04/2019 CR XR FOOT WT BEARING LT 3V from 11/16/2019 FINDINGS: There has been interval amputation at the proximal shaft of the 5th metatarsal. Post biopsy changes are present along with surgical clips and bandage artifact. There are degenerative changes of the toes. IMPRESSION: Status post amputation at the proximal shaft of the 5th metatarsal Dictated by: Nathan Rodgers MD 11/19/2019 16:30 Nathan Rodgers MD in OV 11/19/2019 16:30
--- NOTE | 2019-11-19 07:55 | HMH.OPNOTE ---
Date of procedure: 11/19/19 Pre-op Diagnosis:: 1. Left foot gangrene 2. Left foot s/p fifth toe amputation, I&D on 11/04/2019 3. Left foot cellulitis 4. PAD Post-op Diagnosis:: Same Procedure performed:: 1. Left foot incision and drainage 2. Left excision of gangrenous ulcer/wound 3. Left fifth partial metatarsal amputation 4. Left foot debridement of nonviable soft tissue and bone 5. Left foot derotational skin flap 6. Removal of skin sutures Surgeon:: Hillary Morgan DPM ADMISSIONS CLERK:: Rahul Singh Anesthesia: GETA, local (0.5% marcaine plain) Estimated blood loss (mL): 10 Clinical Note:: Mr. Cortés is an 79-year-old male who was admitted yesterday after cath procedure. 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 Patient was initially scheduled for outpatient revisional surgery to debride gangrenous tissue once he had increased blood flow. Patient was admitted 11/18/19 via the cardiology team after successful stent procedure. After discussion with Dr. Mares will plan for debridement of gangrenous wound. Patient will maintain all anticoagulant/blood thinners per cardiology orders. Patient will also need evaluation via case management for home health care vs SNF. Operative findings:: Previous left fifth toe amputation with sutures intact. There was new gangrenous changes with black eschar to the previous wound incision site. No elina purulence. The tissue underneath the skin was necrotic with some grayish-brown and yellow discoloration to the muscle. The infection did not appear to track up the extensor or flexor tendons. Fifth metatarsal head was soft, color was whitish-brown. Upon removal the bone did have some purulence from the distal aspect of it. Operative note:: On this date and time patient was deemed an appropriate surgical candidate. With informed consent signed, the patient was taken to the operating theater. The patient was positioned supine. General anesthesia was induced. No tourniquet used. Pre-op left fifth ray and forefoot block given with 10cc 0.5% marcaine plain. Left foot was prepped and draped in a normal sterile fashion. Left excision of gangrenous ulcer/wound, removal of skin sutures, foot debridement of nonviable soft tissue and bone: Attention was directed to the left foot where previous ulcer was noted with skin sutures intact. The wound was gangrenous. Full-thickness racquetball incision marked out over nonviable gangrenous tissue. Sutures were all removed in total. The gangrenous ulcer was excised completely full-thickness utilizing a 15 blade and forceps. Left foot incision and drainage: At this point incision was mapped out over the fifth metatarsal extending more proximally. Sharp and blunt dissection down. The wound bed was explored. No tracking noted at the flexor extensor tendon. There was no sinus tracking or purulent drainage noted. Left fifth partial metatarsal amputation: I did restricted to the fifth metatarsal head which was soft and yellowish-brown in color. Saw was used to transect the head and neck of the fifth metatarsal. It was soft and squishy and there was some discoloration, mild malodor noted from the bone. Portion of the bone was sent as a bone culture, portion for bone pathology. Next 1 L of bacitracin irrigation was used to flush the wound and pulse lavage. The wound was reexplored and no further signs of infection noted. The remaining fifth metatarsal bone was examined and a small piece transected and sent as a proximal margin for pathology. The remaining bone appeared to be hard in texture normal color. Next 2 L of bacitracin irrigation was used to flush the wound and pulse lavage. The wound was reexplored and no deep signs of infection or sinus tracking noted. A clean 15 blade was used to clean up skin edges. Good healthy bleeding was noted at this level. At this point the double-ended rasp was used to daphney
--- NOTE | 2019-11-19 07:59 | P.PN_ITS ---
[facility] Anesthesia Record Part I Intake, IV Amount: 1,000 Estimated blood loss (mL): 0 Urine output (mL): 0 Blood Pressure: 140/100 SaO2: 100 Pulse Rate: 80 Respiratory Rate: 12 Temperature: 97.8 F Patient is:: Drowsy, Oral/Nasal airway, Stable Stable to PACU at:: 07:55
[2019-11-19 08:24] LABS: POC Glucose,Bedside 123 (70-110)
--- NOTE | 2019-11-19 08:52 | HMH.HP ---
*Admission Date: 11/18/19 *Chief complaint: wound *History of present illness: 79-year-old male who was admitted yesterday after cath procedure had 2 stents in iliac and one kidney stent. 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 Patient was initially scheduled for outpatient revisional surgery to debride gangrenous tissue once he had increased blood flow. Patient was admitted 11/18/19 via the cardiology team after successful stent procedure. Patient had surgery this am and is now sitting up eatting breakfast. [facility] History I have reviewed the patient's past medical history: Yes Medical History: Reports:: Chronic Obstructive Pulmonary Disease (COPD), Diabetes Mellitus Type 1, Hyperlipidemia, Hypertension, Peripheral Artery Disease, Peripheral Vascular Disease Denies:: Cancer, Diabetes Mellitus Type 2, Internal Pacemaker, MRSA, Seizures *Have you ever received a pneumonia vaccine?: Yes *Have you received a flu vaccine this season?: Yes Other Medical History: Denies: Blood Transfusion Reaction Anesthesia experience/problems:: none Other Surgeries: Yes: Cardiac Catheterization, Cardiac Surgery, Colonoscopy, Other. No: Pacemaker Amputation: Yes Fractures: No - *Social History Last grade of school completed: Some college Smoking Status: Former smoker Tobacco Type: cigarettes # Packs/Day (cigarettes): 2 Alcohol Intake: never Substance Use Type: marijuana *Occupational Status:: retired Housing: house Household Members: family *Travel in the last 8 weeks: None Family Hx:: Unable to obtain Review of Systems - Review of Systems Review of systems:: pertinent systems reviewed and negative unless documented below - Constitutional Denies body ache(s) - Eyes Denies blurry vision - ENT Denies bleeding gums, Denies nose pain - *Cardiovascular Denies chest pain with activity, Denies excessive sweating - *Respiratory Denies chest congestion - *Gastrointestinal Denies bloating, Denies nausea, Denies vomiting - *Genitourinary Denies urinary frequency - *Musculoskeletal Reports muscle weakness, Denies limited joint movement - Integumentary/Breasts Reports skin ulcer, Reports wounds - *Neurologic Denies abnormal hearing, Denies behavioral changes, Denies dizziness - Psychiatric Denies lack of enjoyment - Endocrine Denies excessive sweating - Hematologic/Lymphatic Denies enlarged lymph nodes - Allergic/Immunologic Denies itchy eyes Meds Home Medications Medication Instructions Recorded Confirmed Type Budesonide/Formoterol Fumarate 2 puff INHALATION BID 11/02/19 11/18/19 History [Symbicort 80-4.5 Mcg Inhaler] hydrocodone 7.5 mg-acetaminophen 1 tab PO Q4-6H PRN #30 tab 11/02/19 11/18/19 Rx 325 mg tablet lisinopril 40 mg tablet 40 mg PO BID #60 tab 11/03/19 11/18/19 Rx Aspirin [Aspirin 81mg chewable 81 mg PO DAILY 11/18/19 11/18/19 History tab] Atorvastatin Calcium [Lipitor 40mg 40 mg PO HS 11/18/19 11/18/19 History Tablet] Doxycycline Hyclate [Vibra-Tab 100 mg PO BID 11/18/19 11/18/19 History 100mg tablet] Metformin HCl [Glucophage] 500 mg PO BID 11/18/19 11/18/19 History Ticagrelor [Brilinta 90mg 90 mg PO BID 11/18/19 11/18/19 History Tablet] Allergies Allergy/AdvReac Type Severity Reaction Status Date / Time No Known Allergies Allergy Verified 11/16/19 08:11 Exam Vital signs and Labs for Last 24 Hours: Temp Pulse Resp BP Pulse Ox 97.8 F 80 12 140/100 H 95 11/19/19 08:00 11/19/19 08:00 11/19/19 08:00 11/19/19 08:00 11/19/19 03:27 Laboratory Results - last 24 hr 11/18/19 09:05: WBC 7.8, RBC 3.91 L, Hgb 12.7 L, Hct 37.5 L, MCV 95.8 H, MCH 32.5 H, MCHC 33.9, RDW 13.6, Plt Count 322, MPV 7.1 L, Neut % (Auto) 69.2, Lymph % (Auto) 22.0, [place] % (Auto) 4.5, Eos % (Auto) 3.9, Baso % (Auto) 0.4, Neut # (Auto) 5.4, Lymph # (Auto) 1.7, [place] # (Auto) 0.4, Eos # (Auto) 0.3, B
--- NOTE | 2019-11-19 10:02 | PC.NURSE ---
0759-LMA removed at this time, pt awakening, bhargavs 0823-detailed report called to ArsenioRN 0828-pt transported to 2nd floor per HUSSAIN Souza and JaelRN, vss, pt stable upon discharge from pacu
--- NOTE | 2019-11-19 10:08 | HMH.PHACONS ---
- Pharmacy Consult Date: 11/19/19 Time: 08:00 Referring provider: Norbert MORGAN Reason for Consult:: management of vancomycin therapy Allergies and ADEs:: Allergies Allergy/AdvReac Type Severity Reaction Status Date / Time No Known Allergies Allergy Verified 11/16/19 08:11 Home Medications:: Home Medications Medication Instructions Recorded Confirmed Type Budesonide/Formoterol Fumarate 2 puff INHALATION BID 11/02/19 11/18/19 History [Symbicort 80-4.5 Mcg Inhaler] hydrocodone 7.5 mg-acetaminophen 1 tab PO Q4-6H PRN #30 tab 11/02/19 11/18/19 Rx 325 mg tablet lisinopril 40 mg tablet 40 mg PO BID #60 tab 11/03/19 11/18/19 Rx Aspirin [Aspirin 81mg chewable 81 mg PO DAILY 11/18/19 11/18/19 History tab] Atorvastatin Calcium [Lipitor 40mg 40 mg PO HS 11/18/19 11/18/19 History Tablet] Doxycycline Hyclate [Vibra-Tab 100 mg PO BID 11/18/19 11/18/19 History 100mg tablet] Metformin HCl [Glucophage] 500 mg PO BID 11/18/19 11/18/19 History Ticagrelor [Brilinta 90mg 90 mg PO BID 11/18/19 11/18/19 History Tablet] Height: 1.75 m Weight: 71.35 kg Laboratory Results:: Laboratory Results - last 24 hr 11/18/19 11:56: Activated Clotting Time 245 H* 11/18/19 12:37: Activated Clotting Time 277 H* 11/18/19 13:20: Activated Clotting Time 155 H* D 11/18/19 16:31: POC Glucose 169 H 11/18/19 20:00: POC Glucose 159 H 11/19/19 05:10: POC Glucose 112 H 11/19/19 06:05: WBC 10.1 D, RBC 3.50 L, Hgb 11.2 L D, Hct 35.0 L, MCV 100.0 H, MCH 32.7 H, MCHC 32.7, RDW 13.4, Plt Count 302, MPV 7.8, Neut % (Auto) 75.5, Lymph % (Auto) 15.3, [place] % (Auto) 5.9, Eos % (Auto) 3.1, Baso % (Auto) 0.2, Neut # (Auto) 7.7, Lymph # (Auto) 1.6, [place] # (Auto) 0.6, Eos # (Auto) 0.3, Baso # (Auto) 0.0 11/19/19 06:05: Sodium 138, Potassium 5.2 H, Chloride 105, Carbon Dioxide 27, Anion Gap 11.2, BUN 16, Creatinine 1.30 H, Estimated Creat Clear 46, Estimated GFR 53 L, Est GFR ( Amer) 64 D, Glucose 122 H D, Calcium 9.2 11/19/19 08:17: POC Glucose 123 H Medical History: Reports:: Chronic Obstructive Pulmonary Disease (COPD), Diabetes Mellitus Type 1, Hyperlipidemia, Hypertension, Peripheral Artery Disease, Peripheral Vascular Disease Denies:: Cancer, Diabetes Mellitus Type 2, Internal Pacemaker, MRSA, Seizures Assessment and Plan (1) PAD (peripheral artery disease) Current visit: Yes Status: Acute Category: Medical Code(s): I73.9 - Peripheral vascular disease, unspecified (2) Gangrene of left foot Current visit: Yes Status: Acute Category: Medical Code(s): I96 - Gangrene, not elsewhere classified (3) Abnormal ankle brachial index ([place]) Current visit: No Status: Acute Category: Medical Code(s): R68.89 - Other general symptoms and signs (4) 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 Current visit: No Status: Acute Category: Medical Code(s): E11.51 - Type 2 diabetes mellitus with diabetic peripheral angiopathy without gangrene (5) Tobacco abuse Current visit: No Status: Acute Category: Medical Code(s): Z72.0 - Tobacco use (6) Ulcer of toe of left foot Current visit: No Status: Acute Qualifiers: Non-pressure ulcer stage: with necrosis of bone Qualified Code(s): L97.524 - Non-pressure chronic ulcer of other part of left foot with necrosis of bone Category: Medical Code(s): L97.529 - Non-pressure chronic ulcer of other part of left foot with unspecified severity (7) Vascular calcification Current visit: No Status: Acute Category: Medical Code(s): I99.8 - Other disorder of circulatory system - Assessment and plan all Dx Assessment and Plan for all problems:: Per Dr. Morgan's OR note 11/19/19: Mr. Cortés is an 79-year-old male who was admitted yesterday after cath procedure. 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 Patient was initially scheduled for outpatient revision
--- NOTE | 2019-11-19 10:43 | PC.NURSE ---
PATIENT WILL NEED A ROLLING WALKER RATHER THAN A CANE DUE TO GAIT AND MOBILITY ISSUES WITH LEFT FOOT.
[2019-11-19 10:45] LABS: POC Glucose,Bedside 194 (70-110)
--- NOTE | 2019-11-19 10:46 | SUR.OPER ---
0700- #20 g iv started to right fa per ht rn
--- NOTE | 2019-11-19 11:47 | SW/DCPLANNER ---
Addendum entered by Poonam Remy 11/20/19 09:28: Cyndi from [facility] has called back stating that they will accept this patient for services. Patient will have a follow up with Dr Morgan on 11/22 and home health will do next dressing change on 11/24. I will make patient aware of plan. Patient will discharge home today. Addendum entered by Poonam Remy 11/19/19 14:13: Maribell Pickering has confirmed order for walker has been received and will be delivered to patients room. Patient information and order has also been faxed to [facility]. Original Note: I have spoke with this patient regarding discharge plans: patient will need dressing changes three times a week. I explained the options of placement vs home health to this patient. Patient quickly refused placement and stated I have help at home, I want to return home . I explained home health services and patient was agreeable at this time. Patient stated that he lives at home with his niece and granddaughter. Patient stated that he needs a rolling walker at home and already has a wheel-chair at home. I will set patient up with [facility] at time of discharge and with a rolling walker. Patient will discharge home tomorrow.
--- NOTE | 2019-11-19 13:45 | HMH.PTEV ---
Physical Therapy Evaluation Rehab PT IP Evaluation Start: 11/19/19 08:15 Freq: ONCE Status: Active Protocol: Document 11/19/19 13:39 PWKAYKAY (Rec: 11/19/19 13:43 PWKAYKAY [id number]) Subjective/History History History THis is the initial inpatient physical therapy evaluation for Sebas Cortés. Pt is an 79 y/o male admitted to [facility] s/p I&D w/ ray resection of L foot due to gangrene. Subjective Subjective Pt reports no sig. pain Rehab PT IP Eval Objective Appearance Patient Behavior Appropriate,Cooperative Patient Orientation Person,Place,Time Difficulty following instructions none Speech Pattern Clear,Appropriate Ambulation Patient Able to Ambulate Yes Ambulation Observation IP General Gait Pattern Observation Decrease Weight Bear (L) Ambulation Distance (feet) 10 Ambulation Assistive Device Rolling Walker Ambulation Ability Supervision/Stand by Balance Ability to Arise Able, uses arms to help Sitting Balance Steady, safe Standing Balance Steady, wide stance Dynamic Sitting Balance Ability Normal Dynamic Standing Balance Ability Fair Transfers Bed Transfer Ability Independent Chair Transfer Ability Independent Sit to Stand Bed Transfer Ability Independent,Supervision/Stand by Sit to Stand Chair Transfer Ability Independent,Supervision/Stand by ROM All Extremities PT ROM Status WFL Abnormal ROM Comment abn L foot casted/braced unable to check ROM MMT All Extremities PT MMT WFL Abnormal MMT Grade L foot unable to test due to dressing/brace Rehab PT IP prob,goals,plan Problems Date of Evaluation: 11/19/19 PT IP Problems Transfers,Gait Rehab Potential Rehab Potential Fair Equipment Needs Assistive Devices Rolling / Wheeled Walker Discharge Plan PT Discharge Plan Pt safe to return home w/ HHPT and nsg for dressing change once medically stable G -code Required Yes Eval Complexity Eval Charge Codes 02276 - Low Complexity G Codes PT Current Status Mobility PT Current Status Modifier CJ-At least 20% but less than 40% impaired, limited or restricted PT Goal Status Mobility PT Goal Status Modifer CJ-At least 20%
[2019-11-19 16:42] LABS: POC Glucose,Bedside 143 (70-110)
--- NOTE | 2019-11-19 19:36 | PC.NURSE ---
PATIENT A&OX3, LUNGS CLEAR, PUSLES EQUAL. PATIENT UP TO CHAIR X2 DURING THIS RN SHIFT. PATIENT AMBULATED WELL FROM BED TO CHAIR WITH NWB ON LEFT LEG. NO OTHER CONCERNS AT THIS TIME.
[2019-11-20] VITALS: BP 145/61; PULSE 80; PULSE 90; RESP 16; TEMP 37.1; O2SAT 95
[2019-11-20 01:06] LABS: POC Glucose,Bedside 240 (70-110)
[2019-11-20 03:42] VITALS: BP 140/62; PULSE 93; RESP 18; TEMP 36.7; O2SAT 97
[2019-11-20 04:00] VITALS: PULSE 70
[2019-11-20 05:00] VITALS: BMI 28.9
--- NOTE | 2019-11-20 05:41 | PC.NURSE ---
No acute changes this shift. Pt is anticipating discharge today. Lung sounds remain diminished t/o BL. Pt continues to void per urinal with cloudy, dark yellow urine. All safety measures in place. No complaints at this time. Will continue to monitor.
[2019-11-20 06:13] LABS: Basophils % 0.2 % (0.1-2.0); Eosinophils # 0.1 K/mm3 (0.0-0.4); Eosinophils % 0.9 % (0.1-12.0); Hematocrit 31.5 % (42.0-52.0); Hemoglobin 10.6 g/dL (14.1-18.0); Lymphocytes # 1.8 K/mm3 (0.7-4.5); Lymphocytes % 13.2 % (10-50); Mean Corpuscular HGB Conc 33.6 g/dL (31.8-35.4); Mean Corpuscular Hemoglobin 32.8 pg (27.0-31.2); Mean Corpuscular Volume 97.7 fl (80-94); Mean Platelet Volume 7.5 fl (7.4-10.4); Monocytes # 0.7 K/mm3 (0.1-1.0); Monocytes % 5.3 % (1.7-9.3); Neutrophils # 11.1 K/mm3 (1.8-7.8); Neutrophils % 80.4 % (37.0-80.0); Platelet Count 295 K/mm3 (142-424); Red Blood Count 3.22 M/mm3 (4.60-6.20); Red Cell Distribution Width 13.3 % (11.5-17.5); White Blood Count 13.8 K/mm3 (4.8-10.8)
[2019-11-20 06:19] LABS: Chloride 105 mmol/L (98-107)
[2019-11-20 06:20] LABS: Potassium 4.2 mmoL/L (3.5-5.1); Sodium 136 mmol/L (136-145)
[2019-11-20 06:22] LABS: Alanine Aminotransferase 15 U/L (12-78); Aspartate Amino Transferase 25 U/L (17-59); Blood Urea Nitrogen 17 mg/dl (9-20); Creatinine Clearance Estimated 50 mL/min (50-200); Estimated Glomerular Filt Rate 58 ml/min (>60); GFR (African American) 70 ML/MIN (>60)
[2019-11-20 06:23] LABS: Alkaline Phosphatase 60 U/L (38-126); Anion Gap 10.2 mEq/L (5-15); Bilirubin,Total 0.3 mg/dl (0.2-1.3); Carbon Dioxide 25 mmol/L (22.0-30.0); Globulin 3.1 g/dL (1.3-3.2); Glucose 140 mg/dl (74-100); Total Protein,Serum 6.1 g/dl (6.3-8.2)
--- NOTE | 2019-11-20 06:52 | HMH.ANESII ---
[facility] Anesthesia Record Part II Discharge Time: 08:25 Destination: Surgical Day Care (OP Surgery) PACU nurse assessment reviewed?: Yes Patient Condition:: Good Anesthesia Complications:: None Swallowing reflex intact?: Yes Cyanosis?: No Blood Pressure: 119/60 Pulse Rate: 76 Temperature: 97.6 F Mental Status: Alert & Oriented Pain level:: 0 Nausea and/or vomitting:: None Intake, IV Amount: 0 (Normovolemic)
[2019-11-20 06:53] VITALS: BP 119/60; PULSE 76; TEMP 36.4
[2019-11-20 08:00] VITALS: BP 130/54; PULSE 67; PULSE 83; RESP 20; TEMP 36.8; O2SAT 94
--- NOTE | 2019-11-20 08:21 | PC.NURSE ---
Rounded with Dr. Rodas's team. Pt will be discharged home today with home health. Contacted Dr. Morgan's office and spoke to Mika. Requested rx for [place] and for LLE dressing to be changed before he discharges home today. Dr. Morgan is in the OR but he will relay the message.
--- NOTE | 2019-11-20 08:28 | INFXCTL.NOTE ---
Dr. Morgan's nurse @ [facility] completing LLE dressing change
[2019-11-20 08:39] VITALS: BP 128/54; PULSE 70; RESP 16
--- NOTE | 2019-11-20 09:13 | HMH.ORTHPN ---
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 Patient denies any pain with his Left foot. Patient had Procedure on 11/19/19 a Left foot incision and drainage, Left excision of gangrenous ulcer/wound, Left fifth partial metatarsal amputation, Left foot debridement of nonviable soft tissue and bone, Left foot derotational skin flap and Removal of skin sutures. The site was cleaned with Betadine this morning and there was small amount of bruising noted just at the suture line but ruthann and sutures remain intact. There was a small blood blister noted to the medial aspect of the incision that compressed small amount of blood was expelled, site cleaned again and the suture line remained intact and was flat after the blood was expelled out. Xeroform, betadine soaked 4x4 gauze, dry sterile 4x4 gauze, kerlex and jet wrap was then applied. Patient tolerated the procedure well. <Marie Mcclelland - 11/20/19 10:08> PN: Obj Ex Vital signs: Temp Pulse Resp BP Pulse Ox 98.2 F 70 16 128/54 L 94 L 11/20/19 08:00 11/20/19 08:39 11/20/19 08:39 11/20/19 08:39 11/20/19 08:00 <Hillary Morgan - 11/20/19 10:35> Temp Pulse Resp BP Pulse Ox 98.2 F 70 16 128/54 L 94 L 11/20/19 08:00 11/20/19 08:39 11/20/19 08:39 11/20/19 08:39 11/20/19 08:00 <Marie Mcclelland - 11/20/19 10:08> - Constitutional no acute distress <Marie Mcclelland - 11/20/19 10:08> - Routine HEENT Exam Head: Present: normocephalic <Marie Mcclelland - 11/20/19 10:08> Eye: Present: PERRL <Marie Mcclelland 11/20/19 10:08> ENT: Present: mucous membranes moist <Marie Mcclelland - 11/20/19 10:08> - Routine Neck Exam Present: full ROM, trachea midline <Marie Mcclelland - 11/20/19 10:08> - Routine Respiratory Exam Absent: accessory muscle use, respiratory distress <Marie Mcclelland 11/20/19 10:08> - Routine Cardiovascular Exam Present: RRR <Marie Mcclelland 11/20/19 10:08> - Routine Abdominal Exam Present: soft. Absent: obese <Marie Mcclelland 11/20/19 10:08> - Routine Extremities Exam Present: pulses intact, normal capillary refill, amputation <Marie Mcclelland 11/20/19 10:08> - Detailed Lower Extremity Exam Top foot image: 1 - 11/19/19- patient is Left foot s/p fifth toe amputation and had Left foot incision and drainage, Left excision of gangrenous ulcer/wound, Left fifth partial metatarsal amputation, Left foot debridement of nonviable soft tissue and bone, Left foot derotational skin flap, Removal of skin sutures. Site had small amount of blood that was expelled from a blood blister that was just above the incision site, the suture line remained intact with ruthann and sutures in place. Some bruising noted as well. Site was cleaned with Betadine and then Xeroform was placed over the suture line, Betadine soaked 4 x 4 gauze, dry 4 x 4 gauze, Kerlix, Jet wrap then to cover the site. Patient tolerated procedure well. Patient denies any pain in the foot today. No signs of infection noted. <Marie Mcclelland - 11/20/19 10:08> - Routine Back/Spine/Pelvis Exam Back/Spine: Present: full ROM <Marie Mcclelland - 11/20/19 10:08> - Routine Skin Exam Present: dry <BudcharlottelopezMarie L - 11/20/19 10:08> - Routine Neurological Exam Present: oriented X3, moving all extremities, normal tone, hearing grossly intact, normal speech <Marie Mcclelland 11/20/19 10:08> - Routine Psychiatric Exam Present: normal affect, cooperative <Marie Mcclelland 11/20/19 10:08> Progress Note: A&P (1) PAD (peripheral artery disease) Status: Acute Current Visit: Yes (2) Gangrene of left foot Status: Acute Current Visit: Yes (3) Abn
--- NOTE | 2019-11-20 09:17 | HMH.DCSUM ---
General - General Admission date:: 11/18/19 Discharge date: 11/20/19 HPI HPI: 79-year-old male who was admitted yesterday after cath procedure had 2 stents in iliac and one kidney stent. 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 Patient was initially scheduled for outpatient revisional surgery to debride gangrenous tissue once he had increased blood flow. Patient was admitted 11/18/19 via the cardiology team after successful stent procedure. Patient had surgery this am and is now sitting up eatting breakfast. Hospital Course Hospital Course: Laboratory Tests 11/18/19 11/18/19 11/18/19 09:05 09:05 09:05 WBC 7.8 RBC 3.91 L Hgb 12.7 L Hct 37.5 L MCV 95.8 H MCH 32.5 H MCHC 33.9 RDW 13.6 Plt Count 322 MPV 7.1 L Neut % (Auto) 69.2 Lymph % (Auto) 22.0 [place] % (Auto) 4.5 Eos % (Auto) 3.9 Baso % (Auto) 0.4 Neut # (Auto) 5.4 Lymph # (Auto) 1.7 [place] # (Auto) 0.4 Eos # (Auto) 0.3 Baso # (Auto) 0.0 Activated Clotting Time Sodium 136 Potassium 4.7 Chloride 100 Carbon Dioxide 27 Anion Gap 13.7 BUN 18 Creatinine 1.60 H Estimated Creat Clear 42 Estimated GFR 42 L Est GFR ( Amer) 51 L Glucose 93 POC Glucose Calcium 9.7 Total Bilirubin AST ALT Alkaline Phosphatase Total Protein Albumin Globulin Albumin/Globulin Ratio SARS-CoV-2 IgG Ab (Rapid) Negative SARS-CoV-2 IgM Ab (Rapid) Negative 11/18/19 11/18/19 11/18/19 11:56 12:37 13:20 WBC RBC Hgb Hct MCV MCH MCHC RDW Plt Count MPV Neut % (Auto) Lymph % (Auto) [place] % (Auto) Eos % (Auto) Baso % (Auto) Neut # (Auto) Lymph # (Auto) [place] # (Auto) Eos # (Auto) Baso # (Auto) Activated Clotting Time 245 H* 277 H* 155 H* D Sodium Potassium Chloride Carbon Dioxide Anion Gap BUN Creatinine Estimated Creat Clear Estimated GFR Est GFR ( Amer) Glucose POC Glucose Calcium Total Bilirubin AST ALT Alkaline Phosphatase Total Protein Albumin Globulin Albumin/Globulin Ratio SARS-CoV-2 IgG Ab (Rapid) SARS-CoV-2 IgM Ab (Rapid) 11/18/19 11/18/19 11/19/19 16:31 20:00 05:10 WBC RBC Hgb Hct MCV MCH MCHC RDW Plt Count MPV Neut % (Auto) Lymph % (Auto) [place] % (Auto) Eos % (Auto) Baso % (Auto) Neut # (Auto) Lymph # (Auto) [place] # (Auto) Eos # (Auto) Baso # (Auto) Activated Clotting Time Sodium Potassium Chloride Carbon Dioxide Anion Gap BUN Creatinine Estimated Creat Clear Estimated GFR Est GFR ([facility] Amer) Glucose POC Glucose 169 H 159 H 112 H Calcium Total Bilirubin AST ALT Alkaline Phosphatase Total Protein Albumin Globulin Albumin/Globulin Ratio SARS-CoV-2 IgG Ab (Rapid) SARS-CoV-2 IgM Ab (Rapid) 11/19/19 11/19/19 11/19/19 06:05 06:05 08:17 WBC 10.1 D RBC 3.50 L Hgb 11.2 L D Hct 35.0 L MCV 100.0 H MCH 32.7 H MCHC 32.7 RDW 13.4 Plt Count 302 MPV 7.8 Neut % (Auto) 75.5 Lymph % (Auto) 15.3 [place] % (Auto) 5.9 Eos % (Auto) 3.1 Baso % (Auto) 0.2 Neut # (Auto) 7.7 Lymph # (Auto) 1.6 [place] # (Auto) 0.6 Eos # (Auto) 0.3 Baso # (Auto) 0.0 Activated Clotting Time Sodium 138 Potassium 5.2 H Chloride 105 Carbon Dioxide 27 Anion Gap 11.2 BUN 16 Creatinine 1.30 H Estimated Creat Clear 46 Estimated GFR 53 L Est GFR ([facility] Amer) 64 D Glucose 122 H D POC Glucose 123 H Calcium 9.2 Total Bilirubin AST ALT Alkaline Phosphatase Total Protein Albumin Globulin Albumin/Globulin Ratio SARS-CoV-2 IgG Ab (Ra
--- NOTE | 2019-11-20 10:55 | HMH.PHACLD ---
Sebas Cortés has received discharge medication counseling on the following medications: PATIENT HAD PERIPHERAL STENT ON 11/18/19. STARTING BRILINTA 90 MG BID, ATORVASTATIN 40 MG DAILY, AND ASPIRIN 81 MG DAILY. PATIENT ALREADY TAKING LISINOPRIL 40 MG DAILY. VERIFIED PATIENT HAD BRILINTA FILLED FROM CLINIC PHARMACY AND HAD IN HIS POSSESSION AT TIME OF DISCHARGE. ELIN HAS FILLED THE ATORVASTATIN AND ASPIRIN.
--- NOTE | 2019-11-20 11:19 | PC.NURSE ---
Education provided regarding all 3 f/u apts, care of left groin site and care of LLE. Gave pt 1/2 bottle of Betadine per Poonam Remy request. No family @ [facility]. Rx for Doxycycline given to pt to get filled @ [facility] when he picks up other meds. He verbalized understanding of all education provided.
[2019-11-23 02:17] LABS: POC Glucose,Bedside 138 (70-110)
== END 2019-11-20 11:24 | disposition home health service (06) ==
LOC: 2ND 13:00
PROVIDERS: Podiatrist; Admitting Provider Emergency Medicine; PCP Emergency Medicine; Referring Provider Internal Medicine; Visit Provider Emergency Medicine
DX: E11.51 Type 2 diabetes mellitus with diabetic peripheral angiopathy without gangrene (principal); I70.245 Atherosclerosis of native arteries of left leg with ulceration of other part of foot; L98.494 Non-pressure chronic ulcer of skin of other sites with necrosis of bone; Z95.5 Presence of coronary angioplasty implant and graft; I77.1 Stricture of artery; I15.0 Renovascular hypertension; I25.10 Atherosclerotic heart disease of native coronary artery without angina pectoris; M86.172 Other acute osteomyelitis, left ankle and foot; I74.5 Embolism and thrombosis of iliac artery; I70.1 Atherosclerosis of renal artery; I25.2 Old myocardial infarction; E78.2 Mixed hyperlipidemia; J44.9 Chronic obstructive pulmonary disease, unspecified; I10 Essential (primary) hypertension; Z72.0 Tobacco use; Z79.82 Long term (current) use of aspirin; Z79.84 Long term (current) use of oral hypoglycemic drugs; Z79.02 Long term (current) use of antithrombotics/antiplatelets; E11.621 Type 2 diabetes mellitus with foot ulcer; L97.524 Non-pressure chronic ulcer of other part of left foot with necrosis of bone
CPT/HCPCS: 28810; 36415; 37221; 37223; 37226; 37236; 73630; 74176; 80048; 80053; 82962; 85025; 85347; 86328; 87070; 87077; 87205; 88305; 88311; 97161; 99152; 99153; C1725; C1769; C1876; C1894; G0378; J1644; J2405; J2720; J3370; Q9966

== ENCOUNTER → 2019-11-30 10:42 | Outpatient (CLI) | payer MEDICARE, SELFPAY ==
[2019-11-30 11:06] LABS: Basophils % 0.3 % (0.1-2.0); Eosinophils # 0.3 K/mm3 (0.0-0.4); Eosinophils % 4.2 % (0.1-12.0); Hematocrit 35.7 % (42.0-52.0); Hemoglobin 11.9 g/dL (14.1-18.0); Lymphocytes # 1.6 K/mm3 (0.7-4.5); Lymphocytes % 23.2 % (10-50); Mean Corpuscular HGB Conc 33.3 g/dL (31.8-35.4); Mean Corpuscular Hemoglobin 32.5 pg (27.0-31.2); Mean Corpuscular Volume 97.6 fl (80-94); Mean Platelet Volume 7.5 fl (7.4-10.4); Monocytes # 0.5 K/mm3 (0.1-1.0); Monocytes % 7.7 % (1.7-9.3); Neutrophils # 4.4 K/mm3 (1.8-7.8); Neutrophils % 64.6 % (37.0-80.0); Platelet Count 307 K/mm3 (142-424); Red Blood Count 3.66 M/mm3 (4.60-6.20); Red Cell Distribution Width 14.3 % (11.5-17.5); White Blood Count 6.8 K/mm3 (4.8-10.8)
[2019-11-30 11:52] LABS: Erythrocyte Sedimentation Rate 93 mm/hr (0-20)
[2019-11-30 11:55] LABS: Chloride 104 mmol/L (98-107); Potassium 5.3 mmoL/L (3.5-5.1); Sodium 136 mmol/L (136-145)
[2019-11-30 11:57] LABS: Blood Urea Nitrogen 31 mg/dl (9-20); Estimated Glomerular Filt Rate 36 ml/min (>60); GFR (African American) 44 ML/MIN (>60)
[2019-11-30 11:58] LABS: Alanine Aminotransferase 34 U/L (12-78); Albumin Level 3.8 g/dl (3.5-5.0); Albumin/Globulin Ratio 1.2 (1.1-1.8); Alkaline Phosphatase 64 U/L (38-126); Anion Gap 15.3 mEq/L (5-15); Aspartate Amino Transferase 43 U/L (17-59); Bilirubin,Total 0.5 mg/dl (0.2-1.3); Calcium 9.6 mg/dl (8.4-10.2); Carbon Dioxide 22 mmol/L (22.0-30.0); Globulin 3.1 g/dL (1.3-3.2); Glucose 123 mg/dl (74-100); Total Protein,Serum 6.9 g/dl (6.3-8.2)
[2019-11-30 12:03] LABS: C-Reactive Protein 3.4 mg/L (0-4)
== END ==
PROVIDERS: Visit Provider Podiatrist
DX: M86.172 Other acute osteomyelitis, left ankle and foot (principal); Z98.890 Other specified postprocedural states; I96 Gangrene, not elsewhere classified
CPT/HCPCS: 36415; 80053; 85025; 85651; 86140

== ENCOUNTER → 2019-12-14 16:01 | Outpatient (CLI) | payer MEDICARE, SELFPAY ==
--- NOTE | 2019-12-14 16:05 | XR_ITS ---
PROCEDURE: XR FOOT WT BEARING LT 3V CLINICAL INDICATION: post foot surgery COMPARISON: CR XR FOOT LT MIN 3V from 10/29/2019 CR XR FOOT LT MIN 3V from 11/04/2019 CR XR FOOT WT BEARING LT 3V from 11/16/2019 CR XR FOOT LT MIN 3V from 11/19/2019 FINDINGS: This post osteotomy of the proximal aspect of the 5th metatarsal. Surgical clips are present. No bony erosive process. Borderline pes planus with generalized vascular calcification. Other findings:None. IMPRESSION: Postsurgical changes. No significant change from 11/19/2019 status post amputation at the proximal aspect of the 5th metatarsal Dictated by: Nathan Rodgers MD 12/14/2019 17:14 Nathan Rodgers MD in [facility] 12/14/2019 17:14
[2019-12-14 17:02] LABS: Basophils % 0.5 % (0.1-2.0); Eosinophils # 0.2 K/mm3 (0.0-0.4); Eosinophils % 2.5 % (0.1-12.0); Hemoglobin 13.5 g/dL (14.1-18.0); Lymphocytes % 24.1 % (10-50); Mean Corpuscular HGB Conc 33.8 g/dL (31.8-35.4); Mean Corpuscular Hemoglobin 33.1 pg (27.0-31.2); Mean Corpuscular Volume 98.1 fl (80-94); Mean Platelet Volume 7.6 fl (7.4-10.4); Monocytes # 0.5 K/mm3 (0.1-1.0); Monocytes % 5.5 % (1.7-9.3); Neutrophils # 5.5 K/mm3 (1.8-7.8); Neutrophils % 67.4 % (37.0-80.0); Platelet Count 216 K/mm3 (142-424); Red Blood Count 4.08 M/mm3 (4.60-6.20); Red Cell Distribution Width 13.9 % (11.5-17.5); White Blood Count 8.2 K/mm3 (4.8-10.8)
[2019-12-14 18:19] LABS: Erythrocyte Sedimentation Rate 49 mm/hr (0-20)
[2019-12-14 18:35] LABS: Chloride 104 mmol/L (98-107); Potassium 5.6 mmoL/L (3.5-5.1); Sodium 136 mmol/L (136-145)
[2019-12-14 18:38] LABS: Alanine Aminotransferase 19 U/L (12-78); Albumin Level 3.7 g/dl (3.5-5.0); Albumin/Globulin Ratio 1.2 (1.1-1.8); Alkaline Phosphatase 79 U/L (38-126); Anion Gap 17.6 mEq/L (5-15); Aspartate Amino Transferase 35 U/L (17-59); Bilirubin,Total 0.7 mg/dl (0.2-1.3); Blood Urea Nitrogen 40 mg/dl (9-20); Carbon Dioxide 20 mmol/L (22.0-30.0); Estimated Glomerular Filt Rate 32 ml/min (>60); GFR (African American) 39 ML/MIN (>60); Total Protein,Serum 6.7 g/dl (6.3-8.2)
[2019-12-14 18:39] LABS: Calcium 10.3 mg/dl (8.4-10.2); Glucose 127 mg/dl (74-100)
[2019-12-14 18:44] LABS: C-Reactive Protein 0.6 mg/L (0-4)
== END ==
PROVIDERS: PCP Emergency Medicine; Visit Provider Podiatrist
DX: Z98.890 Other specified postprocedural states (principal); I96 Gangrene, not elsewhere classified; M86.172 Other acute osteomyelitis, left ankle and foot
CPT/HCPCS: 36415; 73630; 80053; 85025; 85651; 86140; 87070; 87077; 87186; 87205

== ENCOUNTER → 2019-12-14 18:22 | Outpatient (CLI) | payer MEDICARE, SELFPAY | PROVIDERS: Visit Provider Podiatrist | DX: M86.172 Other acute osteomyelitis, left ankle and foot (principal) | CPT/HCPCS: 87070; 87205 ==

== ENCOUNTER → 2020-01-05 10:07 | Outpatient (CLI) | payer MEDICARE, SELFPAY ==
--- NOTE | 2020-01-05 10:19 | XR_ITS ---
PROCEDURE: XR FOOT WT BEARING LT 3V CLINICAL INDICATION: S/P LEFT FOOT SURGERY COMPARISON: CR XR FOOT LT MIN 3V from 11/04/2019 CR XR FOOT WT BEARING LT 3V from 11/16/2019 CR XR FOOT LT MIN 3V from 11/19/2019 CR XR FOOT WT BEARING LT 3V from 12/14/2019 FINDINGS: Skin clips have been removed. Status post amputation at the proximal shaft of the 5th metatarsal. There is an oblique lucency along the medial aspect at the amputation site which could be related to an old fracture. This is not significantly changed. No acute bony erosive process is evident. IMPRESSION: Status post amputation at the proximal aspect of the 5th metatarsal with no acute finding Dictated by: Nathan Rodgers MD 01/05/2020 13:55 Nathan Rodgers MD in [facility] 01/05/2020 13:55
[2020-01-05 10:46] LABS: Basophils % 0.2 % (0.1-2.0); Eosinophils # 0.2 K/mm3 (0.0-0.4); Eosinophils % 2.3 % (0.1-12.0); Hematocrit 34.9 % (42.0-52.0); Hemoglobin 10.8 g/dL (14.1-18.0); Lymphocytes # 1.5 K/mm3 (0.7-4.5); Lymphocytes % 21.1 % (10-50); Mean Corpuscular HGB Conc 31.1 g/dL (31.8-35.4); Mean Corpuscular Hemoglobin 31.2 pg (27.0-31.2); Mean Corpuscular Volume 100.5 fl (80-94); Mean Platelet Volume 6.8 fl (7.4-10.4); Monocytes # 0.4 K/mm3 (0.1-1.0); Monocytes % 5.8 % (1.7-9.3); Neutrophils # 4.8 K/mm3 (1.8-7.8); Neutrophils % 70.5 % (37.0-80.0); Platelet Count 275 K/mm3 (142-424); Red Blood Count 3.47 M/mm3 (4.60-6.20); Red Cell Distribution Width 14.1 % (11.5-17.5); White Blood Count 6.9 K/mm3 (4.8-10.8)
[2020-01-05 11:00] LABS: Hemoglobin A1C 6.4 % (4.0-6.0)
[2020-01-05 11:14] LABS: Erythrocyte Sedimentation Rate > 140 mm/hr (0-20)
[2020-01-05 11:30] LABS: Chloride 101 mmol/L (98-107); Potassium 4.5 mmoL/L (3.5-5.1); Sodium 138 mmol/L (136-145)
[2020-01-05 11:33] LABS: Alanine Aminotransferase 28 U/L (12-78); Albumin Level 3.4 g/dl (3.5-5.0); Albumin/Globulin Ratio 1.2 (1.1-1.8); Alkaline Phosphatase 89 U/L (38-126); Anion Gap 11.5 mEq/L (5-15); Aspartate Amino Transferase 39 U/L (17-59); Bilirubin,Total 0.2 mg/dl (0.2-1.3); Blood Urea Nitrogen 12 mg/dl (9-20); Carbon Dioxide 30 mmol/L (22.0-30.0); Estimated Glomerular Filt Rate 64 ml/min (>60); GFR (African American) 78 ML/MIN (>60); Globulin 2.9 g/dL (1.3-3.2); Total Protein,Serum 6.3 g/dl (6.3-8.2)
[2020-01-05 11:34] LABS: Calcium 9.3 mg/dl (8.4-10.2); Glucose 183 mg/dl (74-100)
[2020-01-05 11:39] LABS: C-Reactive Protein 10.9 mg/L (0-4)
== END ==
PROVIDERS: Visit Provider Podiatrist
DX: E11.9 Type 2 diabetes mellitus without complications (principal); Z98.890 Other specified postprocedural states; Z79.84 Long term (current) use of oral hypoglycemic drugs
CPT/HCPCS: 36415; 73630; 80053; 83036; 85025; 85651; 86140

== ENCOUNTER → 2020-01-19 10:32 | Outpatient (CLI) | payer MEDICARE, SELFPAY ==
[2020-01-19 11:01] LABS: Basophils % 0.4 % (0.1-2.0); Eosinophils # 0.3 K/mm3 (0.0-0.4); Eosinophils % 4.3 % (0.1-12.0); Hematocrit 41.5 % (42.0-52.0); Hemoglobin 13.3 g/dL (14.1-18.0); Lymphocytes # 1.8 K/mm3 (0.7-4.5); Lymphocytes % 31.1 % (10-50); Mean Corpuscular Hemoglobin 30.9 pg (27.0-31.2); Mean Corpuscular Volume 96.7 fl (80-94); Mean Platelet Volume 7.8 fl (7.4-10.4); Monocytes # 0.4 K/mm3 (0.1-1.0); Monocytes % 7.5 % (1.7-9.3); Neutrophils # 3.4 K/mm3 (1.8-7.8); Neutrophils % 56.7 % (37.0-80.0); Platelet Count 373 K/mm3 (142-424); Red Blood Count 4.29 M/mm3 (4.60-6.20); Red Cell Distribution Width 15.8 % (11.5-17.5); White Blood Count 5.9 K/mm3 (4.8-10.8)
[2020-01-19 11:30] LABS: Chloride 101 mmol/L (98-107); Potassium 4.4 mmoL/L (3.5-5.1); Sodium 139 mmol/L (136-145)
[2020-01-19 11:32] LABS: Alanine Aminotransferase 14 U/L (12-78); Aspartate Amino Transferase 28 U/L (17-59); Blood Urea Nitrogen 13 mg/dl (9-20); Estimated Glomerular Filt Rate 53 ml/min (>60); GFR (African American) 64 ML/MIN (>60)
[2020-01-19 11:33] LABS: Albumin Level 4.1 g/dl (3.5-5.0); Albumin/Globulin Ratio 1.3 (1.1-1.8); Alkaline Phosphatase 92 U/L (38-126); Anion Gap 14.4 mEq/L (5-15); Bilirubin,Total 0.6 mg/dl (0.2-1.3); Carbon Dioxide 28 mmol/L (22.0-30.0); Globulin 3.2 g/dL (1.3-3.2); Glucose 111 mg/dl (74-100); Total Protein,Serum 7.3 g/dl (6.3-8.2)
[2020-01-19 11:38] LABS: C-Reactive Protein 0.6 mg/L (0-4)
[2020-01-19 11:46] LABS: Erythrocyte Sedimentation Rate 59 mm/hr (0-20)
== END ==
PROVIDERS: Visit Provider Nurse Practitioner
DX: Z98.890 Other specified postprocedural states (principal); I96 Gangrene, not elsewhere classified
CPT/HCPCS: 80053; 85025; 85651; 86140

== ENCOUNTER → 2020-02-02 12:54 | Outpatient (CLI) | payer MEDICARE, SELFPAY ==
[2020-02-02 13:25] LABS: Basophils % 0.7 % (0.1-2.0); Eosinophils # 0.3 K/mm3 (0.0-0.4); Eosinophils % 4.2 % (0.1-12.0); Hematocrit 41.9 % (42.0-52.0); Hemoglobin 13.6 g/dL (14.1-18.0); Lymphocytes # 1.4 K/mm3 (0.7-4.5); Lymphocytes % 21.2 % (10-50); Mean Corpuscular HGB Conc 32.5 g/dL (31.8-35.4); Mean Corpuscular Hemoglobin 32.3 pg (27.0-31.2); Mean Corpuscular Volume 99.4 fl (80-94); Mean Platelet Volume 7.4 fl (7.4-10.4); Monocytes # 0.4 K/mm3 (0.1-1.0); Monocytes % 6.8 % (1.7-9.3); Neutrophils # 4.4 K/mm3 (1.8-7.8); Neutrophils % 67.2 % (37.0-80.0); Platelet Count 246 K/mm3 (142-424); Red Blood Count 4.21 M/mm3 (4.60-6.20); Red Cell Distribution Width 15.4 % (11.5-17.5); White Blood Count 6.5 K/mm3 (4.8-10.8)
[2020-02-02 14:34] LABS: Erythrocyte Sedimentation Rate 35 mm/hr (0-20)
[2020-02-02 15:07] LABS: Chloride 103 mmol/L (98-107); Potassium 4.8 mmoL/L (3.5-5.1); Sodium 138 mmol/L (136-145)
[2020-02-02 15:10] LABS: Alanine Aminotransferase 14 U/L (12-78); Albumin Level 4.2 g/dl (3.5-5.0); Albumin/Globulin Ratio 1.4 (1.1-1.8); Alkaline Phosphatase 84 U/L (38-126); Anion Gap 11.8 mEq/L (5-15); Aspartate Amino Transferase 28 U/L (17-59); Bilirubin,Total 0.4 mg/dl (0.2-1.3); Blood Urea Nitrogen 11 mg/dl (9-20); Calcium 9.7 mg/dl (8.4-10.2); Carbon Dioxide 28 mmol/L (22.0-30.0); Estimated Glomerular Filt Rate 58 ml/min (>60); GFR (African American) 70 ML/MIN (>60); Globulin 3.1 g/dL (1.3-3.2); Glucose 98 mg/dl (74-100); Total Protein,Serum 7.3 g/dl (6.3-8.2)
[2020-02-02 15:16] LABS: C-Reactive Protein 4.2 mg/L (0-4)
== END ==
PROVIDERS: Visit Provider Nurse Practitioner
DX: I96 Gangrene, not elsewhere classified (principal); Z98.890 Other specified postprocedural states
CPT/HCPCS: 36415; 80053; 85025; 85651; 86140

== ENCOUNTER 2020-11-14 12:11 | Emergency (ER) | payer MEDICARE, SELFPAY ==
[2020-11-14 12:11] VITALS: BP 180/100; PULSE 91; RESP 38; TEMP 36.8; O2SAT 94; BMI 25.8
--- NOTE | 2020-11-14 12:19 | XR_ITS ---
PROCEDURE: XR CHEST PORTABLE CLINICAL HISTORY: SOB COMPARISON: CT CT ANGIO CHEST from 06/22/2019 CR XR CHEST 2V from 06/22/2019 CR XR CHEST AP from 11/03/2019 FINDINGS: The cardiomediastinal silhouette and pulmonary vascularity are within normal limits. COPD changes. No lobar consolidation or collapse. No acute bony abnormalities. IMPRESSION: COPD otherwise negative Dictated by: Nathan Rodgers MD 11/14/2020 13:59 Nathan Rodgers MD in [facility] 11/14/2020 13:59
--- NOTE | 2020-11-14 12:23 | ECG_ITS ---
APPROVED REPORT Exam: Resting ECG HR:77 bpm ECG Measurements Heart Rate 77 AXES KS 160 P 85 QRSd 110 QRS 92 QT 418 T 84 QTc 473 Conclusion Normal sinus rhythm Rightward axis Nonspecific ST abnormality Abnormal ECG Electronically signed by : Karthik Kolb MD 11/16/2020 11:49:23
[2020-11-14 12:27] LABS: Basophils % 0.6 % (0.1-2.0); Eosinophils # 0.3 K/mm3 (0.0-0.4); Eosinophils % 5.5 % (0.1-12.0); Hematocrit 43.8 % (42.0-52.0); Hemoglobin 14.6 g/dL (14.1-18.0); Lymphocytes # 1.5 K/mm3 (0.7-4.5); Lymphocytes % 27.3 % (10-50); Mean Corpuscular HGB Conc 33.3 g/dL (31.8-35.4); Mean Corpuscular Hemoglobin 30.6 pg (27.0-31.2); Mean Corpuscular Volume 91.8 fl (80-94); Mean Platelet Volume 7.1 fl (7.4-10.4); Monocytes # 0.4 K/mm3 (0.1-1.0); Monocytes % 7.3 % (1.7-9.3); Neutrophils # 3.2 K/mm3 (1.8-7.8); Neutrophils % 59.2 % (37.0-80.0); Platelet Count 237 K/mm3 (142-424); Red Blood Count 4.78 M/mm3 (4.60-6.20); Red Cell Distribution Width 15.1 % (11.5-17.5); White Blood Count 5.5 K/mm3 (4.8-10.8)
[2020-11-14 12:32] LABS: Anion Gap 12.4 mEq/L (5-15); Blood Urea Nitrogen 19 mg/dl (9-20); Carbon Dioxide 32 mmol/L (22.0-30.0); Chloride 99 mmol/L (98-107); Creatinine Clearance Estimated 56 mL/min (50-200); Estimated Glomerular Filt Rate 58 ml/min (>60); GFR (African American) 70 ML/MIN (>60); Glucose 132 mg/dl (74-100); Potassium 4.4 mmoL/L (3.5-5.1); Sodium 139 mmol/L (136-145)
[2020-11-14 12:35] LABS: Lactic Acid 0.7 mmol/L (0.7-2.1)
[2020-11-14 12:44] LABS: Troponin I 0.03 ng/ml (0.00-0.034)
--- NOTE | 2020-11-14 12:46 | HMH.EDGENADL ---
ED Disposition Clinical Impression: COPD (chronic obstructive pulmonary disease) Qualifiers: COPD type: COPD with acute exacerbation Qualified Code(s): J44.1 - Chronic obstructive pulmonary disease with (acute) exacerbation Disposition: Home, Self-Care Condition on Discharge: Good Instructions: DI for Chronic Obstructive Pulmonary Disease Prescriptions: Albuterol Sulfate [Albuterol 0.083% 2.5mg/3mL neb] 2.5 mg IH Q6 #30 ml Transmission Status: Pending to [facility] Albuterol Sulfate [Albuterol Sulfate Hfa] 1 puff IH Q6 #1 hfa.aer.ad Transmission Status: Pending to [facility] Doxycycline Hyclate [Doxycycline 100mg Capsule] 100 mg PO Q12 #20 cap Transmission Status: Pending to [facility] methylPREDNISolone [Medrol 4mg tab] 4 mg PO DIRECTED #21 tab Transmission Status: Pending to [facility] Referrals: Rick Rodas MD [Primary Care Provider] - - Critical Care Critical Care Time: No Attestation: On 11/14/20, the high probability of a clinically significant, sudden or life threatening deterioration of the following system(s) required my full and direct attention, intervention and personal management. The time I documented below is in addition to time spent performing reported procedures but includes the following listed in this critical care notation. Medical Decision Making - Medical Records Medical records reviewed: Yes: I reviewed the patient's medical records. - Emeterio Inquiry Pt receiving controlled substance: No Vital Signs: 11/14/20 12:11 11/14/20 13:00 Temperature 98.2 F Temperature Source Oral Pulse Rate 77 Pulse Rate [Radial] 91 H Respiratory Rate 38 H 12 Blood Pressure 178/85 H Blood Pressure [Right Arm] 180/100 H Blood Pressure Mean [Right Arm] 126 Blood Pressure Position [Right Arm] Sitting 02 Sat by Pulse Oximetry 94 L 95 Oxygen Delivery Method Room Air - Lab Data Lab Results 11/14/20 12:12: WBC 5.5, RBC 4.78, Hgb 14.6, Hct 43.8, MCV 91.8, MCH 30.6, MCHC 33.3, RDW 15.1, Plt Count 237, MPV 7.1 L, Neut % (Auto) 59.2, Lymph % (Auto) 27.3, [place] % (Auto) 7.3, Eos % (Auto) 5.5, Baso % (Auto) 0.6, Neut # (Auto) 3.2, Lymph # (Auto) 1.5, [place] # (Auto) 0.4, Eos # (Auto) 0.3, Baso # (Auto) 0.0 11/14/20 12:12: Sodium 139, Potassium 4.4, Chloride 99, Carbon Dioxide 32 H, Anion Gap 12.4, BUN 19, Creatinine 1.20, Estimated Creat Clear 56, Estimated GFR 58 L, Est GFR ( Amer) 70, Glucose 132 H, Calcium 9.0, Troponin I 0.03 11/14/20 12:12: Lactate 0.7 11/14/20 12:21: Specimen Source Left radial, O2 % Ra, ABG pH 7.40, ABG pCO2 42.7, ABG pO2 69.4 L, ABG HCO3 25.7, ABG Total CO2 27.0, ABG O2 Saturation 94, ABG Base Excess 0.9, Nathan Test Acceptable Result diagrams: 11/14/20 12:12 11/14/20 12:12 Orders (Tests/Meds): ED MEDICATIONS Discontinued Medications Generic Name Dose Route Start Last Admin Trade Name Freq PRN Reason Stop Dose Admin Albuterol/Ipratropium 3 ml 11/14/20 12:20 11/14/20 12:20 Ipratropium/Albuterol 3 Ml [facility] 11/14/20 12:21 3 ml ONCE ONE Administration Albuterol/Ipratropium 3 ml 11/14/20 12:20 11/14/20 12:29 Ipratropium/Albuterol 3 Ml [facility] 11/14/20 12:21 3 ml ONCE ONE Administration Methylprednisolone Sodium Succinate 125 mg 11/14/20 12:20 11/14/20 12:37 Methylprednisolone Sod Succ 125mg Vial IV 11/14/20 12:21 125 mg ONCE ONE Administration ORDERS Category Date Time Status Chest XR -- portable [XR chest portable] Stat Exams 11/14/20 12:19 Taken Troponin I Q3H Lab 11/14/20 15:30 Ordered Troponin I Q3H Lab 11/14/20 18:30 Ordered Blood Culture Stat Micro 11/14/20 12:12 Received - Radiology Data #1 Image(s): Chest Image Reviewed: Yes I reviewed the patient's radiology results, Yes I reviewed the patient's radiology image, Yes I have reviewed radiologist's interpretation Preliminary Findings: Normal/NAD, No Infiltrates Seen - ECG Data Lisa
[2020-11-14 13:00] VITALS: BP 178/85; PULSE 77; RESP 12; O2SAT 95
[2020-11-14 13:12] LABS: ABG Base Excess 0.9 mmol/L (-2.4-2.3); ABG HCO3 25.7 mmhg (22.0-26.0); ABG Oxygen Saturation 94 % (90-100); ABG PCO2 42.7 mmhg (35.0-45.0); ABG PO2 69.4 mmhg (80-100)
[2020-11-14 13:13] LABS: Allen's Test Acceptable; Oxygen RA %; Source Left Radial
[2020-11-14 14:41] VITALS: BP 180/100; PULSE 78; RESP 32; TEMP 36.6; O2SAT 95
== END 2020-11-14 14:43 | disposition home or self-care (01) ==
PROVIDERS: Emergency Provider Emergency Medicine; PCP Emergency Medicine
DX: J44.1 Chronic obstructive pulmonary disease with (acute) exacerbation (principal); E10.9 Type 1 diabetes mellitus without complications; E78.5 Hyperlipidemia, unspecified; I10 Essential (primary) hypertension; F17.210 Nicotine dependence, cigarettes, uncomplicated
CPT/HCPCS: 71045; 80048; 82803; 83605; 84484; 85025; 87040; 87077; 93005; 96374; 99283

== ENCOUNTER → 2021-01-04 09:47 | Outpatient (CLI) | payer MEDICARE, SELFPAY | PROVIDERS: PCP Nurse Practitioner Family; Visit Provider Nurse Practitioner Family | DX: R06.02 Shortness of breath (principal) | CPT/HCPCS: 94618 ==

== ENCOUNTER 2021-02-21 11:13 | Observation (INO) | payer MEDICARE, SELFPAY ==
[2021-02-21] VITALS (13 sets, daily range): BP systolic 129–212; BP diastolic 60–138; PULSE 65–100; RESP 18–28; TEMP 36.6–36.9; O2SAT 93–99; BMI 25.7; BMI 27.8
--- NOTE | 2021-02-21 11:45 | XR_ITS ---
PROCEDURE: XR FOOT LT 2V CLINICAL INDICATION: ankle pain COMPARISON: CR XR FOOT WT BEARING LT 3V from 11/16/2019 CR XR FOOT LT MIN 3V from 11/19/2019 CR XR FOOT WT BEARING LT 3V from 12/14/2019 CR XR FOOT WT BEARING LT 3V from 01/05/2020 FINDINGS: No fracture or dislocation. No lytic or blastic change. There is normal mineralization. Mild hallux valgus. Generalized vascular calcification. No bony destructive process apparent. Hammertoe deformity digits 2 through 4 Other findings:None. IMPRESSION: No acute findings. Dictated by: Nathan Rodgers MD 02/21/2021 13:41 Nathan Rodgers MD in [facility] 02/21/2021 13:41
--- NOTE | 2021-02-21 11:45 | XR_ITS ---
PROCEDURE: XR ANKLE LT 2V CLINICAL INDICATION: foot pain COMPARISON: No exams were available for comparison FINDINGS: No fracture or dislocation. No lytic or blastic change. There is normal mineralization. The joint spaces are well-preserved. No significant degenerative/arthritic changes. No erosive changes evident. Other findings:Generalized vascular calcification. IMPRESSION: No acute findings. Dictated by: Nathan Rodgers MD 02/21/2021 13:40 Nathan Rodgers MD in [facility] 02/21/2021 13:40
[2021-02-21 11:53] LABS: Basophils % 0.6 % (0.1-2.0); Eosinophils # 0.3 K/mm3 (0.0-0.4); Eosinophils % 3.9 % (0.1-12.0); Hematocrit 42.2 % (42.0-52.0); Hemoglobin 14.4 g/dL (14.1-18.0); Lymphocytes # 1.1 K/mm3 (0.7-4.5); Lymphocytes % 16.8 % (10-50); Mean Corpuscular Hemoglobin 31.4 pg (27.0-31.2); Mean Corpuscular Volume 92.4 fl (80-94); Mean Platelet Volume 8.1 fl (7.4-10.4); Monocytes # 0.4 K/mm3 (0.1-1.0); Monocytes % 6.1 % (1.7-9.3); Neutrophils # 4.8 K/mm3 (1.8-7.8); Neutrophils % 72.6 % (37.0-80.0); Platelet Count 284 K/mm3 (142-424); Red Blood Count 4.57 M/mm3 (4.60-6.20); White Blood Count 6.6 K/mm3 (4.8-10.8)
[2021-02-21 11:58] LABS: Chloride 98 mmol/L (98-107); Potassium 4.2 mmoL/L (3.5-5.1); Sodium 135 mmol/L (136-145)
[2021-02-21 12:01] LABS: Alanine Aminotransferase 12 U/L (12-78); Albumin Level 3.7 g/dl (3.5-5.0); Albumin/Globulin Ratio 1.1 (1.1-1.8); Alkaline Phosphatase 97 U/L (38-126); Anion Gap 9.2 mEq/L (5-15); Aspartate Amino Transferase 45 U/L (17-59); Bilirubin,Total 0.3 mg/dl (0.2-1.3); Blood Urea Nitrogen 20 mg/dl (9-20); Carbon Dioxide 32 mmol/L (22.0-30.0); Creatinine Clearance Estimated 39 mL/min (50-200); Estimated Glomerular Filt Rate 39 ml/min (>60); GFR (African American) 47 ML/MIN (>60); Globulin 3.3 g/dL (1.3-3.2); Glucose 235 mg/dl (74-100)
[2021-02-21 12:13] LABS: Troponin I 0.06 ng/ml (0.00-0.034)
[2021-02-21 12:20] LABS: VBG Base Excess 3.1 mmol/L (-2.4-2.3); VBG HCO3 28.8 mmol/L (23-30); VBG Oxygen Saturation 64.6 % (50-70); VBG PCO2 54.1 mmol/L (35-51); VBG PH 7.34 mmol/L (7.31-7.41); VBG PO2 34.8 mmol/L (28-40); VBG Total CO2 30.5 mmol/L (23-27)
--- NOTE | 2021-02-21 12:32 | SW/DCPLANNER ---
I have provided this patient with a discount prescription card and I have also reached out with Maria Fernanda Castro to discuss with patient different options for inhaler. Patient stated that colón of inhaler is $700. Maria Fernanda has stated that she will reach out to this patient.
--- NOTE | 2021-02-21 13:34 | ECG_ITS ---
APPROVED REPORT Exam: Resting ECG HR:74 bpm ECG Measurements Heart Rate 74 AXES NE 166 P 82 QRSd 124 QRS 92 QT 424 T -58 QTc 470 Conclusion Normal sinus rhythm Right bundle branch block Abnormal ECG Electronically signed by : Karthik Kolb MD 02/21/2021 20:00:45
--- NOTE | 2021-02-21 14:30 | HMH.CNCARD ---
History of Present Illness Consult date: 02/21/21 Requesting physician: Nahomi Gunter Consult reason: shortness of breath Chief complaint: SOB and L foot tingling History of present illness: This is an 80-year-old white gentleman who presented to the emergency department with complaints of tingling and fatigue in his left lower extremity. The patient has also been having shortness of breath with exertion. He is actually really short of breath just while talking to me during his examination. The patient states that this does improve with rest and his inhalers. He states that he has been having issues with inhalers due to cost and not being able to afford them. He denies any chest pain or pressure. He has no other associated symptoms with his shortness of breath. This can be moderate to severe in intensity. Of note, the patient does have a history of coronary artery disease with angioplasty either in or . He denies any fever, chills, nausea, vomiting, diarrhea, PND or orthopnea. [facility] History I have reviewed the patient's past medical history: Yes Medical History: Reports:: Chronic Obstructive Pulmonary Disease (COPD), Coronary Artery Disease, Diabetes Mellitus Type 1, Hyperlipidemia, Hypertension, Peripheral Artery Disease, Peripheral Vascular Disease Denies:: Cancer, Diabetes Mellitus Type 2, Internal Pacemaker, MRSA, Seizures *Have you ever received a pneumonia vaccine?: No *Have you received a flu vaccine this season?: No Other Medical History: Denies: Blood Transfusion Reaction Other Surgeries: Yes: Angioplasty, Cardiac Catheterization, Cardiac Surgery, Colonoscopy, Other. No: Pacemaker Amputation: Yes Fractures: No - *Social History Smoking Status: Current every day smoker Tobacco Type: cigarettes # Packs/Day (cigarettes): 2 Alcohol Intake: never Substance Use Type: marijuana, former substance user *Occupational Status:: retired Housing: house Household Members: family *Travel in the last 8 weeks: None Family Hx:: Coronary Artery Disease, Heart Attack, Stroke, Hyperlipidemia, Alcoholism Meds Home Medications Medication Instructions Recorded Confirmed Type Albuterol Sulfate [Albuterol 2.5 mg CONTINUOUS NEBULIZATION Q6H 02/21/21 02/21/21 History 0.083% 2.5mg/3mL neb] Albuterol Sulfate [Albuterol 1 puff IH Q6 02/21/21 02/21/21 History Sulfate Hfa] Albuterol Sulfate [Albuterol 2 inh INHALATION Q8H 02/21/21 02/21/21 History Sulfate Hfa] Budesonide/Glycopyr/Formoterol 2 inh INHALATION BID 02/21/21 02/21/21 History [Breztri Aerosphere] Allergies Allergy/AdvReac Type Severity Reaction Status Date / Time No Known Allergies Allergy Verified 02/02/21 13:29 Exam Vital signs and Labs for Last 24 Hours: Temp Pulse Resp BP Pulse Ox 98.5 F 83 28 H 202/99 H 97 02/21/21 11:14 02/21/21 11:14 02/21/21 11:14 02/21/21 11:14 02/21/21 11:14 Laboratory Results - last 24 hr 02/21/21 11:40: WBC 6.6, RBC 4.57 L, Hgb 14.4, Hct 42.2, MCV 92.4, MCH 31.4 H, MCHC 34.0, RDW 14.0, Plt Count 284, MPV 8.1, Neut % (Auto) 72.6, Lymph % (Auto) 16.8, [place] % (Auto) 6.1, Eos % (Auto) 3.9, Baso % (Auto) 0.6, Neut # (Auto) 4.8, Lymph # (Auto) 1.1, [place] # (Auto) 0.4, Eos # (Auto) 0.3, Baso # (Auto) 0.0 02/21/21 11:40: Sodium 135 L, Potassium 4.2, Chloride 98, Carbon Dioxide 32 H, Anion Gap 9.2, BUN 20, Creatinine 1.70 H, Estimated Creat Clear 39, Estimated GFR 39 L, Est GFR ( Amer) 47 L, Glucose 235 H, Calcium 9.0, Total Bilirubin 0.3, AST 45, ALT 12, Alkaline Phosphatase 97, Troponin I 0.06 H, Total Protein 7.0, Albumin 3.7, Globulin 3.3 H, Albumin/Globulin Ratio 1.1 02/21/21 11:45: VBG pH 7.34, VBG pCO2 54.1 H, VBG pO2 34.8, VBG HCO3 28.8, VBG Total CO2 30.5 H, VBG O2 Saturation 64.6, VBG Base Excess 3.1 H I & O for Last 24 hours: Intake & Output 02/18/21 02/19/21 02/20/21 02/21/21 23:59 23:59 23:59 23:59 Weight 179 lb - Constitutional no acute distress, average body habitus - *Ro
--- NOTE | 2021-02-21 14:50 | US_ITS ---
APPROVED REPORT Exam Type: Ankle to Brachial Index Associate Dean: RT Srini(R) Indications Claudication: Bilaterally Rest Pain: Bilaterally Current Smoker Risk Factors Hypertension CAD Hyperlipidemia Diabetes Current Smoker Pressures/Indices Right Indices Left Indices Brachial 223.00 mmHg Brachial 223.00 mmHg Low Thigh 150.00 mmHg 0.67 Low Thigh 144.00 mmHg 0.65 Calf 170.00 mmHg 0.76 Calf 162.00 mmHg 0.73 Ankle(PT) 164.00 mmHg 0.74 Ankle(PT) 146.00 mmHg 0.65 Ankle(DP) 185.00 mmHg 0.83 Ankle(DP) 194.00 mmHg 0.87 Digit 110.00 mmHg 0.49 Digit 149.00 mmHg 0.67 Findings RT HERBERTH=0.83 LT HERBERTH=0.87 RT TBI=0.49 LT TBI=0.67 Diminished pulses Abnormal waveforms RN in ER was notified of elevated BP Conclusion RT HERBERTH=0.83 LT HERBERTH=0.87 RT TBI=0.49 LT TBI=0.67 Diminished pulses Abnormal waveforms Mild bilateral arterial disease RN in ER was notified of elevated BP Electronically signed by : Nathan Rodgers MD 02/22/2021 16:31:31
--- NOTE | 2021-02-21 15:10 | HMH.EDSOB ---
ED Disposition Clinical Impression: Ischemic heart disease or syndrome, Shortness of breath Disposition: Admitted as Observation Condition on Discharge: Good Time of Disposition: 19:15 - Critical Care Critical Care Time: No Attestation: On 02/21/21, the high probability of a clinically significant, sudden or life threatening deterioration of the following system(s) required my full and direct attention, intervention and personal management. The time I documented below is in addition to time spent performing reported procedures but includes the following listed in this critical care notation. Vital system(s) involved:: Circulatory Failure Medical Decision Making - Medical Records Medical records reviewed: Yes: I reviewed the patient's medical records. - Emeterio Inquiry Pt receiving controlled substance: No Vital Signs: 02/21/21 11:14 02/21/21 12:30 02/21/21 13:00 Temperature 98.5 F Temperature Source Oral Pulse Rate 74 71 Pulse Rate [Radial] 83 Respiratory Rate 28 H Blood Pressure 203/95 H 190/102 H Blood Pressure [Right Arm] 202/99 H Blood Pressure Mean 131 131 Blood Pressure Mean [Right Arm] 133 Blood Pressure Position Blood Pressure Position [Right Arm] Sitting 02 Sat by Pulse Oximetry 97 93 L 96 Oxygen Delivery Method Room Air 02/21/21 13:30 02/21/21 14:00 02/21/21 14:31 Temperature Temperature Source Pulse Rate 73 65 81 Pulse Rate [Radial] Respiratory Rate Blood Pressure 211/104 H 178/88 H 202/132 H Blood Pressure [Right Arm] Blood Pressure Mean 139 118 153 Blood Pressure Mean [Right Arm] Blood Pressure Position Blood Pressure Position [Right Arm] 02 Sat by Pulse Oximetry 99 96 96 Oxygen Delivery Method 02/21/21 15:00 02/21/21 16:32 02/21/21 16:46 Temperature Temperature Source Pulse Rate 75 100 H 78 Pulse Rate [Radial] Respiratory Rate 18 Blood Pressure 212/101 H 180/138 H 150/79 H Blood Pressure [Right Arm] Blood Pressure Mean 138 151 Blood Pressure Mean [Right Arm] Blood Pressure Position Sitting Blood Pressure Position [Right Arm] 02 Sat by Pulse Oximetry 96 96 98 Oxygen Delivery Method 02/21/21 16:56 Temperature 98 F Temperature Source Oral Pulse Rate 78 Pulse Rate [Radial] Respiratory Rate 24 Blood Pressure 167/89 H Blood Pressure [Right Arm] Blood Pressure Mean Blood Pressure Mean [Right Arm] Blood Pressure Position Blood Pressure Position [Right Arm] 02 Sat by Pulse Oximetry Oxygen Delivery Method Room Air - Lab Data Lab Results 02/21/21 11:40: WBC 6.6, RBC 4.57 L, Hgb 14.4, Hct 42.2, MCV 92.4, MCH 31.4 H, MCHC 34.0, RDW 14.0, Plt Count 284, MPV 8.1, Neut % (Auto) 72.6, Lymph % (Auto) 16.8, [place] % (Auto) 6.1, Eos % (Auto) 3.9, Baso % (Auto) 0.6, Neut # (Auto) 4.8, Lymph # (Auto) 1.1, [place] # (Auto) 0.4, Eos # (Auto) 0.3, Baso # (Auto) 0.0 02/21/21 11:40: Sodium 135 L, Potassium 4.2, Chloride 98, Carbon Dioxide 32 H, Anion Gap 9.2, BUN 20, Creatinine 1.70 H, Estimated Creat Clear 39, Estimated GFR 39 L, Est GFR ( Amer) 47 L, Glucose 235 H, Calcium 9.0, Total Bilirubin 0.3, AST 45, ALT 12, Alkaline Phosphatase 97, Troponin I 0.06 H, Total Protein 7.0, Albumin 3.7, Globulin 3.3 H, Albumin/Globulin Ratio 1.1 02/21/21 11:45: VBG pH 7.34, VBG pCO2 54.1 H, VBG pO2 34.8, VBG HCO3 28.8, VBG Total CO2 30.5 H, VBG O2 Saturation 64.6, VBG Base Excess 3.1 H 02/21/21 15:00: SARS-CoV-2 (PCR) Not detected, Influenza A Untype (PCR) Not detected, Influenza Type B (PCR) Not detected 02/21/21 16:10: Troponin I 0.06 H Result diagrams: 02/21/21 17:12 02/21/21 17:12 Orders (Tests/Meds): ED MEDICATIONS Generic Name Dose Route Start Last Admin Trade Name Freq PRN Reason Stop Dose Admin Acetaminophen 650 mg 02/21/21 16:41 Acetaminophen 325mg Tab PO 03/23/21 16:40 Q4HP PRN Fever or Mild Pain Aspirin 81 mg 02/22/21 09:00 Aspirin 81mg Chewable Tablet PO 03/23/21 14:44
[2021-02-21 15:16] LABS: Coronavirus 19, PCR Not Detected (NotDetected); Influenza A, PCR Not Detected (NotDetected); Influenza B, PCR Not Detected (NotDetected)
--- NOTE | 2021-02-21 16:00 | PC.NURSE ---
pt resting eating dinner
[2021-02-21 16:39] LABS: Troponin I 0.06 ng/ml (0.00-0.034)
--- NOTE | 2021-02-21 16:42 | PC.NURSE ---
report called to floor
--- NOTE | 2021-02-21 16:52 | PC.NURSE ---
pt arrived to the floor at this time.
--- NOTE | 2021-02-21 16:55 | PC.NURSE ---
pt transferred to floor per wheelchair
[2021-02-21 17:44] LABS: Basophils # 0.1 K/mm3 (0-0.2); Basophils % 0.7 % (0.1-2.0); Eosinophils # 0.2 K/mm3 (0.0-0.4); Hematocrit 43.2 % (42.0-52.0); Hemoglobin 14.2 g/dL (14.1-18.0); Lymphocytes # 1.2 K/mm3 (0.7-4.5); Lymphocytes % 16.9 % (10-50); Mean Corpuscular HGB Conc 32.9 g/dL (31.8-35.4); Mean Corpuscular Volume 94.3 fl (80-94); Mean Platelet Volume 7.9 fl (7.4-10.4); Monocytes # 0.4 K/mm3 (0.1-1.0); Monocytes % 5.1 % (1.7-9.3); Neutrophils # 5.2 K/mm3 (1.8-7.8); Neutrophils % 74.3 % (37.0-80.0); Platelet Count 280 K/mm3 (142-424); Red Blood Count 4.58 M/mm3 (4.60-6.20); Red Cell Distribution Width 14.1 % (11.5-17.5)
[2021-02-21 17:56] LABS: Chloride 98 mmol/L (98-107); Sodium 135 mmol/L (136-145)
[2021-02-21 17:57] LABS: Potassium 4.1 mmoL/L (3.5-5.1)
[2021-02-21 17:59] LABS: Anion Gap 11.1 mEq/L (5-15); Blood Urea Nitrogen 21 mg/dl (9-20); Carbon Dioxide 30 mmol/L (22.0-30.0); Creatinine Clearance Estimated 41 mL/min (50-200); Estimated Glomerular Filt Rate 39 ml/min (>60); GFR (African American) 47 ML/MIN (>60); Glucose 271 mg/dl (74-100)
[2021-02-21 18:00] LABS: Magnesium 2.1 mg/dl (1.6-2.3)
[2021-02-21 18:02] LABS: INR 0.91 (0.9-1.1); Prothrombin Time 10.4 seconds (10.1-12.5)
[2021-02-21 21:34] LABS: POC Glucose,Bedside 128 (70-110)
[2021-02-22] VITALS (21 sets, daily range): BP systolic 108–170; BP diastolic 58–89; PULSE 64–95; RESP 16–18; TEMP 36.9–37; O2SAT 90–98; BMI 27.7
--- NOTE | 2021-02-22 | IR_ITS ---
APPROVED REPORT Patient Location: Inpatient Hospice Executive Director: ANDREA Saenz RT (R) PROCEDURES Left heart catheterization Selective coronary angiogram Drug-eluting stent deployment to the proximal mid and distal dominant circumflex artery Drug-eluting stent deployment to the proximal mid left anterior descending artery INDICATION Acute non-ST elevation myocardial infarction, Coronary artery disease, Systolic congestive heart failure Informed consent was obtained prior to the procedure. COMPLICATIONS NONE Estimated Blood Loss: LESS THAN 10 ML TECHNIQUE One percent lidocaine used to anesthetize the right anterior aspect of the wrist. The right radial artery was accessed via the Seldinger technique. A 6 Wolof sheath was placed in the right radial artery. 2.5 mg of verapamil, 800 mcg of nitroglycerin, 1mg Lidocaine and 5000 U Heparin were given through the arterial sheath. The Poppa 1 catheter was also used to perform left heart catheterization, left ventriculogram and selective coronary angiogram. At the end of the procedure the sheath was removed good hemostasis was achieved using Traclet band, patient was transferred to the postop holding area in stable condition. At the end of the diagnostic angiogram therapeutic heparin was administered giving a therapeutic ACT. The Poppa 1 catheter was placed in left main artery and a Choice PT extra-support wire was placed distally in the circumflex artery. The guide liner was advanced after primary stenting could not be performed and a 3 mm x 38 mm resolute [place] stent was deployed at 20 sabas reducing the critical disease to 0%. An additional 3 mm x 12 mm resolute Foreign stent was placed distal to this yet still overlapping it and deployed at 20 sabas. The balloon was brought back and deployed at 24 sbaas up and down the circumflex artery. An additional 3 mm x 12 mm resolute [place] stent was placed proximal to the first stent that was placed yet still overlapping and deployed at 24 sabas. At the end of the procedure there was wide patency of the circumflex artery and the critical disease reduced to 0% with 3 contiguous drug-eluting stents. At this point the apparatus was left in the left main artery and the wire was pulled back and placed into the LAD. The guide liner was advanced and a 2.5 mm balloon was used to predilate the stenosis in the LAD. Following this a 3 mm x 38 mm resolute [place] stent was deployed at 20 sabas reducing the critical disease to 0%. An additional 3 mm x 38 mm resolute Foreign stent was placed proximally and deployed at 22 sabas and then to 24 sabas. The balloon was advanced and deployed at 22 sabas in the first and second stent. 800 mcg of intracoronary nitroglycerin was administered followed by a 2.75 x 12 mm resolute [place] stent placed in the mid LAD overlapping the first LAD stent which was placed. After this was deployed at 14 sabas again was brought back and deployed at 24 sabas to mesh the 2 stents. After achieving SAI III flow before and after the procedure the apparatus was removed the sheath was removed good hemostasis was achieved using TR banding patient was transferred to the postop already in stable condition ANGIOGRAPHIC RESULTS The left main artery Short and normal The left anterior descending artery Has proximal calcified 30% stenosis with a 50% proximal stenosis followed by mid vessel concentric 80 to 90% stenosis The circumflex artery Is a large dominant vessel is proximal 70 to 80% stenosis with an eccentric 80% stenosis and a additional 90% stenosis The right coronary artery Is a nondominant vessel and subtotally occluded in the midsegment with scant distal flow The MELVIN ventriculogram reveals Not performed The left ventric
--- NOTE | 2021-02-22 08:07 | HMH.PHAVTE ---
[facility] Pharmacy VTE Monitoring - Patient Demographics Admission date: 02/22/21 Report Date: 02/22/21 Time: 08:07 Allergies/Adverse Reactions: Patient Allergies No Known Allergies Allergy (Verified 02/02/21 13:29) Height: 1.75 m Weight: 85.474 kg Patient Problems: Current Active Problems PAD (peripheral artery disease) (Chronic) Elevated troponin (Acute) Shortness of breath (Acute) Renal artery stenosis (Chronic) Claudication (Acute) Ischemic heart disease or syndrome (Acute) Shortness of breath (Acute) Tobacco abuse (Chronic) HLD (hyperlipidemia) (Chronic) HTN (hypertension) (Chronic) CAD (coronary artery disease) (Chronic) - VTE Risk Labs: VTE Related Lab Results Hgb 14.2 g/dL (14.1-18.0) 02/21/21 17:12 Hct 43.2 % (42.0-52.0) 02/21/21 17:12 Plt Count 280 K/mm3 (142-424) 02/21/21 17:12 PT 10.4 seconds (10.1-12.5) 02/21/21 17:12 INR 0.91 (0.9-1.1) 02/21/21 17:12 BUN 21 mg/dl (9-20) H 02/21/21 17:12 Creatinine 1.70 mg/dl (0.66-1.25) H 02/21/21 17:12 Estimated Creat Clear 41 mL/min (50-200) 02/21/21 17:12 Was VTE Risk Assessment Performed: Yes VTE Score: 4 VTE Risk Level: Low Risk Clinical Trial Participant: No - Prophylaxis VTE Prophylaxis Ordered?: Yes Types of VTE Prophylaxis: TEDS Knee High, Pharmacological (BRILINTA)
--- NOTE | 2021-02-22 08:10 | HMH.PHAINT ---
verified home medication list using list from [facility]
[2021-02-22 08:24] LABS: Basophils % 0.6 % (0.1-2.0); Eosinophils # 0.3 K/mm3 (0.0-0.4); Eosinophils % 4.9 % (0.1-12.0); Hematocrit 40.8 % (42.0-52.0); Hemoglobin 13.6 g/dL (14.1-18.0); Lymphocytes # 1.4 K/mm3 (0.7-4.5); Lymphocytes % 22.3 % (10-50); Mean Corpuscular HGB Conc 33.4 g/dL (31.8-35.4); Mean Corpuscular Hemoglobin 31.2 pg (27.0-31.2); Mean Corpuscular Volume 93.4 fl (80-94); Mean Platelet Volume 7.4 fl (7.4-10.4); Monocytes # 0.4 K/mm3 (0.1-1.0); Monocytes % 7.1 % (1.7-9.3); Neutrophils # 4.1 K/mm3 (1.8-7.8); Neutrophils % 65.1 % (37.0-80.0); Platelet Count 260 K/mm3 (142-424); Red Blood Count 4.37 M/mm3 (4.60-6.20); Red Cell Distribution Width 14.2 % (11.5-17.5); White Blood Count 6.3 K/mm3 (4.8-10.8)
[2021-02-22 08:38] LABS: Anion Gap 7.1 mEq/L (5-15); Blood Urea Nitrogen 20 mg/dl (9-20); Calcium 8.6 mg/dl (8.4-10.2); Carbon Dioxide 30 mmol/L (22.0-30.0); Chloride 104 mmol/L (98-107); Creatinine Clearance Estimated 41 mL/min (50-200); Estimated Glomerular Filt Rate 39 ml/min (>60); GFR (African American) 47 ML/MIN (>60); Glucose 132 mg/dl (74-100); Potassium 4.1 mmoL/L (3.5-5.1); Sodium 137 mmol/L (136-145)
[2021-02-22 09:01] LABS: Alanine Aminotransferase 8 U/L (12-78); Albumin Level 3.2 g/dl (3.5-5.0); Alkaline Phosphatase 74 U/L (38-126); Aspartate Amino Transferase 43 U/L (17-59); Bilirubin,Direct 0.1 mg/dl (0.0-0.4); Bilirubin,Indirect 0.4 mg/dL (0.0-0.9); Bilirubin,Total 0.5 mg/dl (0.2-1.3); Bilirubin,Unconjugated 0.4 mg/dL (0.0-1.1); Chol/HDL Ratio 7.1 (1-3.5); Cholesterol 207 mg/dl (140-200); HDL Cholesterol 29 mg/dl (40-60); Total Protein,Serum 6.5 g/dl (6.3-8.2); Triglycerides 120 mg/dl (30-150); VLDL Cholesterol 24 mg/dL (0-40)
[2021-02-22 09:13] LABS: Direct LDL Cholesterol 150.65 mg/dL (100-129)
--- NOTE | 2021-02-22 09:45 | HMH.PNCARD ---
Subjective Date: 02/22/21 Time: 08:00 Principal diagnosis: elevated troponin, SOA, Atypical angina, chf Interval history: This is an 80-year-old white gentleman who presented to the emergency department with complaints of shortness of breath and tingling and fatigue in his left lower extremity. The patient states that he is short of breath with exertion and he does get short of breath while just talking during his examination. The patient states that his inhalers improve his shortness of breath. It is worse with exertion and it also improves with rest. The patient states that he has not really been taking any of his inhalers or medications due to cost and not being able to afford them. He does report that a social worker assistant is going to help him with his medications. He denies any chest pain or pressure. He denies any lower extremity edema. He denies any fever, chills, nausea, vomiting, diarrhea, PND or orthopnea. The patient does have a history of coronary artery disease. He does have an elevated troponin consistent with a non-ST elevation myocardial infarction and is scheduled to undergo left cardiac catheterization today to evaluate his coronary artery disease. His preliminary echocardiogram does show LV dysfunction with an estimated ejection fraction of 30 to 35% which is new because his ejection fraction was normal in July 2019. Exam Vital signs and Labs for Last 24 Hours: Temp Pulse Resp BP Pulse Ox 98.5 F 76 18 153/58 H 97 02/22/21 08:00 02/22/21 08:00 02/22/21 08:00 02/22/21 08:00 02/22/21 08:00 Laboratory Results - last 24 hr 02/21/21 11:40: WBC 6.6, RBC 4.57 L, Hgb 14.4, Hct 42.2, MCV 92.4, MCH 31.4 H, MCHC 34.0, RDW 14.0, Plt Count 284, MPV 8.1, Neut % (Auto) 72.6, Lymph % (Auto) 16.8, [place] % (Auto) 6.1, Eos % (Auto) 3.9, Baso % (Auto) 0.6, Neut # (Auto) 4.8, Lymph # (Auto) 1.1, [place] # (Auto) 0.4, Eos # (Auto) 0.3, Baso # (Auto) 0.0 02/21/21 11:40: Sodium 135 L, Potassium 4.2, Chloride 98, Carbon Dioxide 32 H, Anion Gap 9.2, BUN 20, Creatinine 1.70 H, Estimated Creat Clear 39, Estimated GFR 39 L, Est GFR ( Amer) 47 L, Glucose 235 H, Calcium 9.0, Total Bilirubin 0.3, AST 45, ALT 12, Alkaline Phosphatase 97, Troponin I 0.06 H, Total Protein 7.0, Albumin 3.7, Globulin 3.3 H, Albumin/Globulin Ratio 1.1 02/21/21 11:45: VBG pH 7.34, VBG pCO2 54.1 H, VBG pO2 34.8, VBG HCO3 28.8, VBG Total CO2 30.5 H, VBG O2 Saturation 64.6, VBG Base Excess 3.1 H 02/21/21 15:00: SARS-CoV-2 (PCR) Not detected, Influenza A Untype (PCR) Not detected, Influenza Type B (PCR) Not detected 02/21/21 16:10: Troponin I 0.06 H 02/21/21 17:12: WBC 7.0, RBC 4.58 L, Hgb 14.2, Hct 43.2, MCV 94.3 H, MCH 31.0, MCHC 32.9, RDW 14.1, Plt Count 280, MPV 7.9, Neut % (Auto) 74.3, Lymph % (Auto) 16.9, [place] % (Auto) 5.1, Eos % (Auto) 3.0, Baso % (Auto) 0.7, Neut # (Auto) 5.2, Lymph # (Auto) 1.2, [place] # (Auto) 0.4, Eos # (Auto) 0.2, Baso # (Auto) 0.1 02/21/21 17:12: PT 10.4, INR 0.91 02/21/21 17:12: Sodium 135 L, Potassium 4.1, Chloride 98, Carbon Dioxide 30, Anion Gap 11.1, BUN 21 H, Creatinine 1.70 H, Estimated Creat Clear 41, Estimated GFR 39 L, Est GFR ( Amer) 47 L, Glucose 271 H, Calcium 9.0, Magnesium 2.1 02/21/21 20:31: POC Glucose 128 H 02/22/21 08:12: WBC 6.3, RBC 4.37 L, Hgb 13.6 L, Hct 40.8 L, MCV 93.4, MCH 31.2, MCHC 33.4, RDW 14.2, Plt Count 260, MPV 7.4, Neut % (Auto) 65.1, Lymph % (Auto) 22.3, [place] % (Auto) 7.1, Eos % (Auto) 4.9, Baso % (Auto) 0.6, Neut # (Auto) 4.1, Lymph # (Auto) 1.4, [place] # (Auto) 0.4, Eos # (Auto) 0.3, Baso # (Auto) 0.0 02/22/21 08:12: Sodium 137, Potassium 4.1, Chloride 104, Carbon Dioxide 30, Anion Gap 7.1, BUN 20, Creatinine 1.70 H, Estimated Creat Clear 41, Estimated GFR 39 L, Est GFR ( Amer) 47 L, Glucose 132 H D, Calcium 8.6 02/22/21 08:12: Total Bilirubin 0.5, Direct Bilirubin 0.1, Conjugated Bilirubin 0.0, Indirect Bilirubin 0.4, Unconjugated Bilirubin 0.4, AST 43, ALT 8 L D, Alkaline Phosphatase 74, Total Protein 6.5, Albumi
[2021-02-22 12:17] LABS: POC Glucose,Bedside 135 (70-110)
[2021-02-22 14:43] LABS: CATHL Activated Clotting Time > 400 SEC (74-125)
--- NOTE | 2021-02-22 15:02 | HMH.HP ---
*Admission Date: 02/22/21 *Chief complaint: chest pain *History of present illness: 80-year-old white gentleman who presented to the emergency department with complaints of tingling and fatigue in his left lower extremity. The patient has also been having shortness of breath with exertion. He is actually really short of breath just while talking to me during his examination. The patient states that this does improve with rest and his inhalers. He states that he has been having issues with inhalers due to cost and not being able to afford them. He denies any chest pain or pressure. He has no other associated symptoms with his shortness of breath. This can be moderate to severe in intensity. Of note, the patient does have a history of coronary artery disease with angioplasty either in or . He denies any fever, chills, nausea, vomiting, diarrhea, PND or orthopnea.-per cardiology [facility] History I have reviewed the patient's past medical history: Yes Medical History: Reports:: Chronic Obstructive Pulmonary Disease (COPD), Coronary Artery Disease, Diabetes Mellitus Type 1, Diabetes Mellitus Type 2, Hyperlipidemia, Hypertension, Peripheral Artery Disease, Peripheral Vascular Disease Denies:: Cancer, Internal Pacemaker, MRSA, Seizures *Have you ever received a pneumonia vaccine?: No *Have you received a flu vaccine this season?: Yes Other Medical History: Reports: Arthritis, Cataracts. Denies: Blood Transfusion Reaction Other Surgeries: Yes: Angioplasty, Cardiac Catheterization, Cardiac Surgery, Colonoscopy, Other. No: Pacemaker Amputation: Yes Fractures: No - *Social History Smoking Status: Current every day smoker Tobacco Type: cigarettes # Packs/Day (cigarettes): 1 Alcohol Intake: never Substance Use Type: marijuana, former substance user *Occupational Status:: retired, disabled Housing: house Household Members: family *Travel in the last 8 weeks: None Family Hx:: Unable to obtain Review of Systems - Review of Systems Review of systems:: pertinent systems reviewed and negative unless documented below - Constitutional Denies body ache(s) - Eyes Denies blurry vision - ENT Denies bleeding gums - *Cardiovascular Reports chest pain, Reports chest pain at rest, Reports chest pain with activity - *Respiratory Denies change in phlegm color - *Gastrointestinal Denies belching - *Genitourinary Denies urinary hesitancy - *Musculoskeletal Denies joint pain - Integumentary/Breasts Denies bleeding lesions - *Neurologic Reports numbness, Denies abnormal hearing - Psychiatric Denies abnormal sleep pattern - Endocrine Denies excessive sweating - Hematologic/Lymphatic Denies easy bruising - Allergic/Immunologic Denies itchy eyes Meds Home Medications Medication Instructions Recorded Confirmed Type Albuterol Sulfate [Albuterol 1 puff IH Q6HP PRN 02/21/21 02/22/21 History Sulfate Hfa] Budesonide/Formoterol Fumarate 2 puffs IH BID 02/22/21 02/22/21 History [Budesonide-Formoterol 80-4.5] lisinopriL [Lisinopril] 10 mg PO DAILY 02/22/21 02/22/21 History Allergies Allergy/AdvReac Type Severity Reaction Status Date / Time No Known Allergies Allergy Verified 02/02/21 13:29 Exam Vital signs and Labs for Last 24 Hours: Temp Pulse Resp BP Pulse Ox 98.6 F 69 17 143/77 H 95 02/22/21 11:54 02/22/21 14:16 02/22/21 14:15 02/22/21 14:15 02/22/21 14:15 Laboratory Results - last 24 hr 02/21/21 15:00: SARS-CoV-2 (PCR) Not detected, Influenza A Untype (PCR) Not detected, Influenza Type B (PCR) Not detected 02/21/21 16:10: Troponin I 0.06 H 02/21/21 17:12: WBC 7.0, RBC 4.58 L, Hgb 14.2, Hct 43.2, MCV 94.3 H, MCH 31.0, MCHC 32.9, RDW 14.1, Plt Count 280, MPV 7.9, Neut % (Auto) 74.3, Lymph % (Auto) 16.9, [place] % (Auto) 5.1, Eos % (Auto) 3.0, Baso % (Auto) 0.7, Neut # (Auto) 5.2, Lymph # (Auto) 1.2, [place] # (Auto) 0.4, Eos # (Auto) 0.2, Baso # (Auto) 0.1 02/21/21 17:12: PT 10.4, I
[2021-02-22 17:30] LABS: POC Glucose,Bedside 119 (70-110)
[2021-02-22 21:14] LABS: POC Glucose,Bedside 108 (70-110)
[2021-02-23] VITALS: BP 172/90; PULSE 86; PULSE 90; RESP 19; TEMP 36.6; O2SAT 95
[2021-02-23 04:00] VITALS: BP 157/87; PULSE 78; PULSE 80; RESP 20; TEMP 36.9; O2SAT 95
[2021-02-23 04:28] VITALS: BMI 28.1
[2021-02-23 06:57] LABS: Basophils % 0.3 % (0.1-2.0); Eosinophils # 0.3 K/mm3 (0.0-0.4); Eosinophils % 3.1 % (0.1-12.0); Hemoglobin 13.3 g/dL (14.1-18.0); Lymphocytes # 1.4 K/mm3 (0.7-4.5); Lymphocytes % 17.4 % (10-50); Mean Corpuscular HGB Conc 33.2 g/dL (31.8-35.4); Mean Corpuscular Hemoglobin 31.6 pg (27.0-31.2); Mean Corpuscular Volume 95.1 fl (80-94); Mean Platelet Volume 7.3 fl (7.4-10.4); Monocytes # 0.6 K/mm3 (0.1-1.0); Monocytes % 7.1 % (1.7-9.3); Neutrophils # 5.9 K/mm3 (1.8-7.8); Neutrophils % 72.1 % (37.0-80.0); Platelet Count 242 K/mm3 (142-424); Red Blood Count 4.21 M/mm3 (4.60-6.20); Red Cell Distribution Width 14.1 % (11.5-17.5); White Blood Count 8.2 K/mm3 (4.8-10.8)
[2021-02-23 07:11] LABS: Anion Gap 8.4 mEq/L (5-15); Blood Urea Nitrogen 21 mg/dl (9-20); Calcium 8.6 mg/dl (8.4-10.2); Carbon Dioxide 28 mmol/L (22.0-30.0); Chloride 105 mmol/L (98-107); Creatinine Clearance Estimated 42 mL/min (50-200); Estimated Glomerular Filt Rate 39 ml/min (>60); GFR (African American) 47 ML/MIN (>60); Glucose 123 mg/dl (74-100); Potassium 4.4 mmoL/L (3.5-5.1); Sodium 137 mmol/L (136-145)
[2021-02-23 07:44] VITALS: BP 167/65; PULSE 78; RESP 18; TEMP 36.7; O2SAT 96
[2021-02-23 08:00] VITALS: PULSE 80
--- NOTE | 2021-02-23 09:09 | HMH.DCSUM ---
General - General Admission date:: 02/21/21 Discharge date: 02/23/21 HPI HPI: 80-year-old white gentleman who presented to the emergency department with complaints of tingling and fatigue in his left lower extremity. The patient has also been having shortness of breath with exertion. He is actually really short of breath just while talking to me during his examination. The patient states that this does improve with rest and his inhalers. He states that he has been having issues with inhalers due to cost and not being able to afford them. He denies any chest pain or pressure. He has no other associated symptoms with his shortness of breath. This can be moderate to severe in intensity. Of note, the patient does have a history of coronary artery disease with angioplasty either in or . He denies any fever, chills, nausea, vomiting, diarrhea, PND or orthopnea.-per cardiology Hospital Course Hospital Course: pt was seen by card- an 80-year-old white gentleman who presented to the emergency department with complaints of tingling and fatigue in his left lower extremity. The patient has also been having shortness of breath with exertion. He is actually really short of breath just while talking to me during his examination. The patient states that this does improve with rest and his inhalers. He states that he has been having issues with inhalers due to cost and not being able to afford them. He denies any chest pain or pressure. He has no other associated symptoms with his shortness of breath. This can be moderate to severe in intensity. Of note, the patient does have a history of coronary artery disease with angioplasty either in or . He denies any fever, chills, nausea, vomiting, diarrhea, PND or orthopnea. The patient was admitted to the hospital for shortness of breath and an elevated troponin. The patient has a known history of coronary artery disease with angioplasty in the or . Given his shortness of breath and atypical angina in the setting of an elevated troponin, will plan to proceed with left cardiac catheterization in the morning to evaluate his coronary artery disease. 2. The patient will be n.p.o. after midnight in preparation for the left cardiac catheterization. 3. The patient has been educated on the risks and benefits of proceeding with left cardiac catheterization. The patient verbalized understanding is agreeable proceeding with the procedure. 4. The patient will get premedications and IV fluids prior to the procedure. 5. Coronary artery disease is present. 6. His blood pressure is elevated. The patient has not been taking any of his medications due to cost issues and issues with his insurance. We will get him restarted on lisinopril 10 mg daily which is one of his home medications. 7. We will also start the patient on carvedilol 6.25 mg p.o. twice daily for better blood pressure control and angina. 8. His LDL goal is less than 55. We will get a liver and lipid panel in the morning. He is on a statin. 9. The patient is diabetic. He will need aggressive control of his diabetes. Will defer management of this to his primary care provider. 10. Tobacco cessation is highly advised and counseled. 11. Restart his aspirin and Brilinta. 12. The patient has a history of PAD and renal artery stenosis. He has been having some numbness in his left lower extremity. We will check an HERBERTH today and determine whether or not a runoff needs to be added to his left cardiac catheterization in the morning. 13. We will get an echocardiogram to evaluate his LV function due to shortness of breath. 14. Further recommendations were made pending the patient's response to treatment and the results of his echocardiogram, HERBERTH and left cardiac catheterization tomorrow. pt had heart cath-NGIOGRAPHIC RESULTS The left main artery Short and normal The left anterior descending artery Has proximal calcified 30% steno
[2021-02-23 17:05] LABS: POC Glucose,Bedside 121 (70-110)
== END 2021-02-23 10:40 | disposition home or self-care (01) ==
LOC: ER 15:20 → 2ND 15:39
PROVIDERS: Internal Medicine; Nurse Practitioner Family; Admitting Provider Emergency Medicine; Emergency Provider Student in an Organized Health Care Education/Training Program; PCP Emergency Medicine; Visit Provider Emergency Medicine
DX: R06.00 Dyspnea, unspecified (principal); I21.4 Non-ST elevation (NSTEMI) myocardial infarction; I70.1 Atherosclerosis of renal artery; E11.40 Type 2 diabetes mellitus with diabetic neuropathy, unspecified; J44.9 Chronic obstructive pulmonary disease, unspecified; I25.118 Atherosclerotic heart disease of native coronary artery with other forms of angina pectoris; F17.210 Nicotine dependence, cigarettes, uncomplicated; Z82.49 Family history of ischemic heart disease and other diseases of the circulatory system; Z91.120 Patient's intentional underdosing of medication regimen due to financial hardship; I50.21 Acute systolic (congestive) heart failure; I11.0 Hypertensive heart disease with heart failure; I42.9 Cardiomyopathy, unspecified; I70.203 Unspecified atherosclerosis of native arteries of extremities, bilateral legs; G45.8 Other transient cerebral ischemic attacks and related syndromes; Z20.822 Contact with and (suspected) exposure to COVID-19
CPT/HCPCS: G0378; 36415; 73600; 73620; 80048; 80053; 80061; 80076; 82803; 82962; 83735; 84484; 85025; 85347; 85610; 92928; 93005; 93306; 93458; 93923; 96374; 99152; 99153; 99284; C1725; C1760; C1769; C1874; C1876; C9600; C9803; J1644; Q9967; U0003; U0005

== ENCOUNTER 2021-03-03 23:55 | Emergency (ER) | payer MEDICARE, SELFPAY ==
--- NOTE | 2021-03-03 23:55 | PC.NURSE ---
2355 pt arrived via EMS in full cardiac arrest, asystole on monitor. CPR being performed by EMS art specialist. This RN met EMS in ambulance bay. 2356 defibrillator pads placed to pt, no pulse detected at femoral or carotid sites. CPR resumed. intubated pt with 7.5 ET with color changed noted and bilateral/equal breath sounds heard. 22 at the lip. [place] to ET with 100% O2. Respiratory therapist controlling respirations. Sat 93% at this time. 2358 IO placed to RLE by art specialist Moreno Nixon. Good blood return. Attempting to obtain peripheral IV to RAC. 2359 Epi 1mg admin via to RLE IO, 0.9% NS bolus began at this time through RLE IO. 0001 Epi 1mg admin via to RLE IO. Attempting PIV to LAC & R hand. 0005 pulse checked asystole on the monitor, CPR resumed. BP 198/80. Epi 1mg given to RLE IO. 0006 16f mckeon placed by Dr. Rodas, clear/ylw urine return noted. 0009 2 amp bicarb given to RLE IO 0010 Vishnu @ bedside 0011 Epi 3mg admin to RLE IO per Dr. Mares. BP 201/90, sat 85% 0013 pulse detect via Doppler to L carotid. 0017 pt transported to label machine operator, en-route received phone call states that POA declines further inventions at this time. 0018 pt returned to er. Vishnu and POManny at bedside. POA stated that pt to be a DNR and perform comfort care @ this time. POA requested ambu bag not to be used. 0048 ER pronounced at this time. 0138 T Glover director of content marketing notified of and ok to release body to home 0140 notified annika spoke to Nieves and pt ruled out due to age.
[2021-03-04 00:07] VITALS: BMI 30.2
--- NOTE | 2021-03-04 01:07 | PC.NURSE ---
contacted [facility] to contact the postie
--- NOTE | 2021-03-04 01:36 | PC.NURSE ---
notified AURELIO and spoke to Nieves and pt it ruled out due to age. Case number is [id number]
--- NOTE | 2021-03-04 01:38 | PC.NURSE ---
notified Ramiro bustamante that pt was ruled out from [facility] and family requested [facility] for home
--- NOTE | 2021-03-04 01:50 | [facility].EDCPR ---
ED Disposition Clinical Impression: STEMI (ST elevation myocardial infarction) Qualifiers: Involved coronary artery: unspecified coronary artery Qualified Code(s): I21.3 - ST elevation (STEMI) myocardial infarction of unspecified site Disposition: Condition on Discharge: Critical Referrals: Provider,Referral, MD [Primary Care Provider] - - Critical Care Critical Care Time: Yes Attestation: On 03/03/21, the high probability of a clinically significant, sudden or life threatening deterioration of the following system(s) required my full and direct attention, intervention and personal management. The time I documented below is in addition to time spent performing reported procedures but includes the following listed in this critical care notation. Total Critical Care Time: 30 Vital system(s) involved:: Circulatory Failure My critical care processes included: Assessment & monitoring of V/S, Initial and Re-exams, Data Review/Interpretation, Coordinating Care, Documentation [facility] Code Documentation - Arrest Information Outside of Hospital The Code Document Section documentation for [id number] [employer]eb[employer] was populated with data that defaulted in from the planer operator in the Code Assessment on f_Reg Service Date] to provide within this report, the status and treatment of the patient in the ED during a Code. This documentation will be supplemented with my direct findings within the body of the report. Date Treatment Initiated: 03/04/21 Time Treatment Initiated: 23:42 Treatment Initiated By: EMS Arrest Witnessed: Yes - ALS Code Inititation ALS Initiated By: EMS ALS Type: ACLS - Patient Condition At Code Start Condition of Patient at Start of Code: Pulseless Monitoring Devices: ECG Monitor - Circulation Initial Cardiac Rhythm: Asystole - Oxygenation Oxygen Breathing Status: Assisted - Code End Time Code Ended: 00:15 Patient Successfully Resuscitated: Yes Reason Code Ended: Survived - Return of Circulation > 20 minutes Family Members Present During Code: Yes Names of All Individuals Present at Code: Aminta Diane RN. Norbert cohen RN. Andres barraza - Patient Expiration Date: 03/04/21 Expiration Time: 00:48 Pronounced by: tristan Time Pronounced: 00:48 Post Mortem Care Provided: Yes Next of Kin Notified: kapil sheppard Next of Kin Notification Time: 00:48 Organ Donor: No Attending Physician Called: No Feather Mixer Case: No Feather Mixer Notified: Yes (Ramiro bustamante @ [phone]) Feather Mixer Notification Date: 03/04/21 Feather Mixer Notification Time: 01:15 Medical Decision Making - Medical Records Medical records reviewed: Yes: I reviewed the patient's medical records. - Emeterio Inquiry Pt receiving controlled substance: No Vital Signs: 03/04/21 03:11 Temperature 0 F L Pulse Rate 0 L Respiratory Rate 0 L Blood Pressure 00/00 L Oxygen Delivery Method Mechanical Ventilation Orders (Tests/Meds): ED MEDICATIONS Generic Name Dose Route Start Last Admin Trade Name Freq PRN Reason Stop Dose Admin Diphenhydramine HCl 50 mg 03/04/21 00:16 Diphenhydramine 50mg/Ml Vial IV 03/04/21 00:17 ONCE ONE Fentanyl Citrate 25 mcg 03/04/21 00:16 Fentanyl 100mcg/2ml Vial IV 03/05/21 00:16 Q3MINP PRN Moderate to Severe Pain Fentanyl Citrate 50 mcg 03/04/21 00:16 Fentanyl 100mcg/2ml Vial IV 03/05/21 00:16 Q3MINP PRN Moderate to Severe Pain Fentanyl Citrate 25 mcg 03/04/21 00:16 Fentanyl 250mcg/5ml Vial IV 03/05/21 00:16 Q3MINP PRN Moderate to Severe Pain Fentanyl Citrate 50 mcg 03/04/21 00:16 Fentanyl 250mcg/5ml Vial IV 03/05/21 00:16 Q3MINP PRN Moderate to Severe Pain Flumazenil 0.2 mg 03/04/21 00:16 Flumazenil 0.1mg/Ml 5ml Vial IV 03/04/21 23:00 NEEDED PRN Sedation Heparin Sodium (Porcine) 10,000 unit 03/04/21 00:16 Heparin 1,000 Units/Ml 10ml Vial (Driver Trainee) IV 12
--- NOTE | 2021-03-04 03:10 | PC.NURSE ---
body discharged to [facility] home @ this time
[2021-03-04 03:11] VITALS: BP 00/00; PULSE 0; RESP 0; TEMP -17.7; TEMP 0; O2SAT 0
== END 2021-03-04 03:15 | disposition expired ==
PROVIDERS: Emergency Provider Emergency Medicine
DX: I46.9 Cardiac arrest, cause unspecified (principal); I21.3 ST elevation (STEMI) myocardial infarction of unspecified site; I25.10 Atherosclerotic heart disease of native coronary artery without angina pectoris; E11.9 Type 2 diabetes mellitus without complications; J44.9 Chronic obstructive pulmonary disease, unspecified; F17.210 Nicotine dependence, cigarettes, uncomplicated
CPT/HCPCS: 31500; 96365; 96375; 96376; 99284